=== PATIENT | female | born 1945 | race Native Hawaiian/Other Pacific Islander ===

== ENCOUNTER 2019-01-26 07:07 | Emergency (ER) | payer MEDICARE, OTHER ==
--- NOTE | 2019-01-26 07:13 | ED Physician Documentation ---
PD HPI DYSPNEA - Stated complaint Stated Complaint: SOA - Chief complaint Chief Complaint: Resp - History obtained from History obtained from: Patient - History of Present Illness Timing - onset: How many days ago (few days of cough and progressively worse wheezing.) Timing - onset during: Light activity Timing - duration: Days Timing - details: Gradual onset, Still present Inciting event(s): URI. No: Out of meds, Allergic rxn/anaphylaxis Improved by: Inhaler/neb (but not well improved with MDI at home.) Associated symptoms: Cough, Wheezing. No: Fever, Hemoptysis, Chest pain / discomfort, Palpitations, Bilateral edema Similar symptoms before: Diagnosis (COPD) Recently seen: Not recently seen Review of Systems Constitutional: reports: Myalgias. denies: Fever Nose: reports: Congestion Throat: denies: Sore throat Cardiac: denies: Chest pain / pressure Respiratory: reports: Dyspnea, Cough, Wheezing GI: reports: Diarrhea. denies: Abdominal Pain, Nausea, Vomiting Skin: denies: Rash, Lesions Neurologic: reports: Generalized weakness. denies: Focal weakness, Numbness, Near syncope PD PAST MEDICAL HISTORY - Past Medical History Cardiovascular: None Respiratory: COPD Neuro: None Endocrine/Autoimmune: None - Present Medications Home Medications: Ambulatory Orders Medication Instructions Recorded Confirmed Albuterol Sulf [Ventolin Hfa 1 - 2 puffs INH Q4HR PRN 01/26/19 01/26/19 Inhaler] Atorvastatin [Lipitor] 0 mg 01/26/19 01/26/19 Doxycycline Hyclate 100 mg PO BID #14 capsule 01/26/19 Ipratropium [Atrovent] 1 puffs INH TID #1 inhaler 01/26/19 Lisinopril/Hydrochlorothiazide 1 each PO 01/26/19 [Lisinopril-Hctz 10-12.5 mg Tab] Metoprolol Succinate 50 mg PO 01/26/19 Potassium Chloride [Micro-K] 10 meq PO 0800 01/26/19 01/26/19 dexAMETHasone [Decadron] 4 mg PO DAILY #7 tablet 01/26/19 - Allergies Allergies/Adverse Reactions: Allergies Allergy/AdvReac Type Severity Reaction Status Date / Time No Known Drug Allergies Allergy Verified 01/26/19 07:41 PD ED PE NORMAL - Vitals Vital signs reviewed: Yes - General General: Alert and oriented X 3, Well developed/nourished - HEENT HEENT: Moist mucous membranes, Pharynx benign - Neck Neck: Supple, no meningeal sign, No adenopathy - Cardiac Cardiac: RRR (tachycardic), No murmur - Respiratory Respiratory: No: Clear bilaterally (wheezing diffuse with decreased tidal volume. Able to complete sentences. Mild accessory muscle use. ) - Abdomen Abdomen: Soft, Non tender - Derm Derm: Normal color, Warm and dry - Extremities Extremities: No deformity, Normal ROM s pain, No edema, No calf tenderness / cord - Neuro Neuro: Alert and oriented X 3, No motor deficit, Normal speech Results - Vitals Vitals: Vital Signs - 24 hr 01/26/19 01/26/19 01/26/19 07:10 07:30 08:30 Temperature 37.3 C Heart Rate 113 H 101 H 130 H Respiratory 28 H 22 20 Rate Blood Pressure 162/74 H O2 Saturation 98 01/26/19 08:32 Temperature 37.3 C Heart Rate 129 H Respiratory 18 Rate Blood Pressure 132/76 H O2 Saturation 94 Oxygen O2 Source Room air - Rads (name of study) chest xray Radiology: Prelim report reviewed, EMP read contemporaneously (no infiltrate), See rad report PD MEDICAL DECISION MAKING - ED course Complexity details: re-evaluated patient (She is having improvement in her breathing and wheezing after a DuoNeb. She is given start her on steroids. She still has some wheezing but has no work of breathing. We will give her second nebulizer with albuterol. I think she will be able to be discharged after that point.), considered differential (seems like URI or bronchitis, and exac COPD. Given the COPD, she is more likely to do well with abx, as well as steroids and allergy meds. ), d/w patient Departure - Departure Disposition: 01 Home, Self Care Clinical Impression: Acute exacerbation of COPD with asthma Upper respiratory infection Qualifiers: URI type: unspecified URI Qualified Code(s): J06.9 - Acute upper respiratory infection, unspecified Condition: Stable Record reviewed to determine appropriate education?: Yes Instructions: ED Upper Resp Infec Abx Tx, ED COPD Flare Prescriptions: dexAMETHasone [Decadron] 4 mg PO DAILY #7 tablet Doxycycline Hyclate 100 mg PO BID #14 capsule Ipratropium [Atrovent] 1 puffs INH TID #1 inhaler Comments: Continue your albuterol inhaler 2 puffs 4 times a day regularly at home and use it extra times as needed for wheezing. Add to it Atrovent (ipratropium) inhaler 1 puff 3 times a day for the next week or 2. Add Decadron oral steroid daily for week. Take doxycycline antibiotic twice daily for a week as well for potential of bacterial infection. Recheck if not improving over the next few days. Return sooner if worsening. Discharge Date/Time: 01/26/19 09:01
[2019-01-26] MEDS ORDERED: DEXAMETHASONE 10 MG/ML VIAL PO STA (07:18)
[2019-01-26] MEDS ORDERED: IPRATROPIUM/ALBUTEROL 3 ML NEB INH STA (07:18)
[2019-01-26] MEDS ORDERED: CHERRY SYRUP 10 ML UDC PO ONE (07:18)
[2019-01-26] MEDS ORDERED: ALBUTEROL NEB 2.5 MG/3 ML INH STA (08:16)
[2019-01-26] MEDS ORDERED: diphenhydrAMINE 25 MG CAPSULE PO STA (08:16)
--- NOTE | 2019-01-26 08:28 | XRAY Report ---
Reason: dyspnea/ cough Procedure Date: 01/26/2019 Accession Number: [id number] / [id number] Procedure: XR - Chest 2 View X-Ray CPT Code: 77566 FULL RESULT: EXAM: CHEST RADIOGRAPHY EXAM DATE: 01/26/2019 07:29 AM. CLINICAL HISTORY: Dyspnea/ cough. COMPARISON: None. TECHNIQUE: 2 views. FINDINGS: Lungs/Pleura: Bilateral parahilar and right infrahilar peribronchial thickening. No vadim consolidation or vascular congestion. No pneumothorax or pleural effusion. Borderline hyperinflation. Mediastinum: Normal heart size and mildly tortuous aorta with calcified aortic knob. Other: No fracture evident. IMPRESSION: 1. Possible airways disease/bronchitis. No consolidative pneumonia. 2. Normal heart size without failure. Senescent aorta. RADIA
[2019-01-26 08:33] VITALS: BP 132/76
== END 2019-01-26 09:01 | disposition home or self-care (01) ==
LOC: ED 07:07
DX: J44.1 Chronic obstructive pulmonary disease with (acute) exacerbation (principal); J06.9 Acute upper respiratory infection, unspecified
CPT/HCPCS: 71046; 94640; 99283; 99284; A9270

== ENCOUNTER 2024-07-31 11:42 | Observation (INO) ==
--- NOTE | 2024-07-31 13:07 | XRAY Report ---
PROCEDURE: XR Chest 1V INDICATIONS: SOA/cough TECHNIQUE: One view of the chest was acquired. COMPARISON: January 26, 2019. FINDINGS: Surgical changes and devices: None. Lungs and pleura: Hyperinflated without pleural effusions or pneumothorax. No consolidation. Mediastinum: Mediastinal contours appear normal. Heart size is normal. Bones and chest wall: No suspicious bony lesions. Overlying soft tissues appear unremarkable. IMPRESSION: No acute cardiopulmonary process. Reviewed by: Lili Chirinos MD on 07/31/2024 12:06 PM [facility] Approved by: Lili Chirinos MD on 07/31/2024 12:06 PM [facility] Station ID: [id number]
[2024-07-31 13:35] LABS: BASOPHILS % (AUTO) 0.3 %; HCT - HEMATOCRIT 23.3 % (37.0-47.0); HGB - HEMOGLOBIN 7.6 g/dL (12.0-16.0); LYMPHOCYTES # (AUTO) 1.3 10^3/uL (1.5-3.5); LYMPHOCYTES % (AUTO) 13.3 %; MEAN CORPUSCULAR HEMOGLOBIN 33.2 pg (27.0-31.0); MEAN CORPUSCULAR HGB CONC 32.6 g/dL (32.0-36.0); MEAN CORPUSCULAR VOLUME 101.7 fL (81.0-99.0); MEAN PLATELET VOLUME 9.5 fL (7.9-10.8); MONOCYTES # (AUTO) 0.2 10^3/uL (0.0-1.0); MONOCYTES % (AUTO) 1.9 %; NEUTROPHILS # (AUTO) 8.1 10^3/uL (1.5-6.6); PLT - PLATELET COUNT 278 10^3/uL (130-450); RED BLOOD COUNT 2.29 10^6/uL (4.20-5.40); RED CELL DISTRIBUTION WIDTH 13.6 % (12.0-15.0); WHITE BLOOD COUNT 9.6 x10^3/uL (4.8-10.8)
[2024-07-31 13:37] LABS: INR 1.1 (0.8-1.2); PT - PROTHROMBIN TIME 12.3 secs (9.9-12.6)
[2024-07-31 13:41] LABS: CORONAVIRUS 229E-RESP PCR NOT DETECTED; CORONAVIRUS HKU1-RESP PCR NOT DETECTED; CORONAVIRUS NL63-RESP PCR NOT DETECTED; CORONAVIRUS OC43-RESP PCR NOT DETECTED; HUMAN METAPNEUMOVIRUS NOT DETECTED; INFLUENZA A- RESP PCR PANEL NOT DETECTED; INFLUENZA B - RESP PCR PANEL NOT DETECTED; PARAINFLUENZA VIRUS 1 NOT DETECTED; PARAINFLUENZA VIRUS 2 NOT DETECTED; RHINOVIRUS/ENTEROVIRUS NOT DETECTED; SARS-CoV-2 -RESP PCR PANEL NOT DETECTED
[2024-07-31 13:42] LABS: B. PARAPERTUSSIS- RESP PCR PAN NOT DETECTED; B. PERTUSSIS- RESP PCR PANEL NOT DETECTED; C. PNEUMONIAE- RESP PCR PANEL NOT DETECTED; M. PNEUMONIAE- RESP PCR PANEL NOT DETECTED; PARAINFLUENZA VIRUS 3 NOT DETECTED; PARAINFLUENZA VIRUS 4 NOT DETECTED; RSV- RESP PCR PANEL NOT DETECTED
[2024-07-31 13:48] LABS: ALBUMIN 3.9 g/dL (3.2-5.5); ALBUMIN/GLOBULIN RATIO 1.8 (1.0-2.2); BILIRUBIN,TOTAL 0.4 mg/dL (0.2-1.0); CALCIUM 8.8 mg/dL (8.5-10.3); CREATININE 0.6 mg/dL (0.6-1.3); TOTAL PROTEIN 6.1 g/dL (6.4-8.9)
[2024-07-31 13:53] LABS: TROPONIN I HIGH SENSITIVITY 4.8 ng/L (2.3-14.8)
--- NOTE | 2024-07-31 13:54 | ED Physician Documentation ---
PD HPI DYSPNEA Stated complaint Stated Complaint: SOA/GI Chief complaint Chief Complaint: Resp Additional information Additional information: 79-year-old female history of COPD, not on oxygen presents by EMS from home for shortness of breath and dark stools. Patient states that normally she is able to do all of her activities without shortness of breath. Yesterday she noticed that while taking the trash to the street she was slightly winded. Overnight she woke up to use the restroom and was unable to go more than a couple of steps without severe dyspnea. Today her symptoms persisted and she called 911 for evaluation. Patient states that several years ago in [place] she was diagnosed with ulcers, however she has not followed up with a physician since moving to [facility] over a year ago. Denies use of NSAIDs or other blood thinners. Meds/Allgy Home Medications Ambulatory Orders Medication Instructions Recorded Confirmed albuterol sulfate 90 mcg/actuation 1 - 2 puff inhalation Q4HR PRN 01/26/19 07/31/24 aerosol inhaler (Ventolin HFA) Shortness Of Air/Wheezing atorvastatin 10 mg tablet 10 mg PO DAILY 01/26/19 07/31/24 ipratropium bromide 17 1 puff inhalation TID ##1 01/26/19 07/31/24 mcg/actuation HFA aerosol inhaler (Atrovent HFA) lisinopril 10 1 ea PO DAILY 01/26/19 07/31/24 mg-hydrochlorothiazide 12.5 mg tablet metoprolol succinate 50 mg 50 mg PO DAILY 01/26/19 07/31/24 tablet,extended release 24 hr potassium chloride 10 mEq 10 meq PO 0800 01/26/19 07/31/24 capsule,extended release Allergies Allergies Allergy/AdvReac Type Severity Reaction Status Date / Time No Known Drug Allergies Allergy Verified 07/31/24 11:56 [facility] Medical History Medical History (Updated 07/31/24 @ 14:04 by Nara Woodward MD) Acute blood loss anemia Hx of peptic ulcer HLD (hyperlipidemia) HTN (hypertension) COPD (chronic obstructive pulmonary disease) Surgical History Surgical History (Updated 07/31/24 @ 12:01 by Shane Lai RN) Hx of hysterectomy Social History Social History (Updated 07/31/24 @ 12:01 by Shane Lai RN) Smoking Status: Former smoker Relationship: Level: Independent Do you feel safe in your home environment?: Yes Suffered physical, verbal, emotional, or financial abuse?: No History of Abuse: No ETOH Use: None Substance Use: cannabis (any form) POLST Patient has POLST: No Exam Constitutional normal general appearance frail Chest inspection of chest normal and palpation of chest normal Respiratory breath sounds equal bilaterally, normal respiratory effort and no wheezes Cardiovascular tachycardia, regular rhythm Gastrointestinal abdomen normal to inspection and abdomen soft to palpation Rectal exam: learning engineer present, dark black stool in rectal vault Neurology chief deputy II-XII intact, no movement abnormality noted, no sensory deficits noted and speech normal Psychiatry mental status grossly normal, oriented x3, thought process normal and psychomotor activity normal Skin skin color normal and no rash Results Vitals Vitals: Vital Signs - 24 hr 07/31/24 11:57 07/31/24 12:20 07/31/24 12:47 Temperature 36.5 C Temperature Source Oral Pulse Rate 110 H 120 H Respiratory Rate 20 26 H Blood Pressure 128/59 L 107/45 L O2 Saturation 84 L 98 Oxygen Delivery Method Nasal Cannula O2 Source Room air Nasal cannula Oxygen Flow Rate 2 If not protocol: Oxygen Flow, liters/minute 2 Pain Intensity 0 0 07/31/24 12:52 07/31/24 13:52 Temperature Temperature Source Pulse Rate 111 H Respiratory Rate 20 Blood Pressure 116/44 L O2 Saturation 95 Oxygen Delivery Method Nasal Cannula O2 Source Nasal cannula Oxygen Flow Rate If not protocol: Oxygen Flow, liters/minute 2 2 Pain Intensity 0 Oxygen O2 Source Nasal cannula Oxygen Flow Rate 2 Labs Labs: Laboratory Tests 07/31/24 07/31/24 12:40 13:21 WBC 9.6 RBC 2.29 L Hgb 7.6 L Hct 23.3 L MCV 101.7 H MCH 33.2 H MCHC 32.6 RDW 13.6 Plt Count 278 MPV 9.5 Neut # (Auto) 8.1 H Lymph # (Auto) 1.3 L [place] # (Auto) 0.2 Eos # (Auto) 0.0 Baso # (Auto) 0.0 Absolute Nucleated RBC 0.00 Nucleated RBC % 0.0 PT 12.3 INR 1.1 Sodium 137 Potassium 4.0 Chloride 106 Carbon Dioxide 24 Anion Gap 7.0 BUN 47 H Creatinine 0.6 Estimated GFR (MDRD) 97 Glucose 147 H Calcium 8.8 Total Bilirubin 0.4 AST 12 ALT 10 Alkaline Phosphatase 36 L Troponin I High Sens 4.8 B-Natriuretic Peptide 21 Total Protein 6.1 L Albumin 3.9 Globulin 2.2 Albumin/Globulin Ratio 1.8 Nasal Adenovirus (PCR) NOT DETECTED Nasal B. parapertussis DNA (PCR) NOT DETECTED Nasal Coronavir 229E PCR NOT DETECTED Nasal Coronavir HKU1 PCR NOT DETECTED Nasal Coronavir NL63 PCR NOT DETECTED Nasal Coronavir OC43 PCR NOT DETECTED Nasal Enterovir/Rhinovir PCR NOT DETECTED Nasal Influenza B PCR NOT DETECTED Nasal Influenza A PCR NOT DETECTED Nasal Parainfluen 1 PCR NOT DETECTED Nasal Parainfluen 2 PCR NOT DETECTED Nasal Parainfluen 3 PCR NOT DETECTED Nasal Parainfluen 4 PCR NOT DETECTED Nasal RSV (PCR) NOT DETECTED Nasal B.pertussis DNA PCR NOT DETECTED Nasal C.pneumoniae (PCR) NOT DETECTED Nathan Human Metapneumo PCR NOT DETECTED Nasal M.pneumoniae (PCR) NOT DETECTED Nasal SARS-CoV-2 (PCR) NOT DETECTED PD Medical Decision Making ED course ED course: Shortness of breath and dark stools for 1 day. Patient does report history of ulcers, however has had no recent follow-up for this issue. Lungs are clear to auscultation bilaterally without wheezing. Patient's heart rate is well- controlled when at rest, however even minor exertion causes patient's heart rate to increase 120 bpm. With the otherwise rapid progression of symptoms and black stools suspect GI bleed. Laboratory work shows hemoglobin 7.6, troponin undetectable. Chest x-ray negative for acute findings. No bloody bowel movements so far while in the emergency department. Type and screen sent and is pending at this time. Discussed case with Dr. Juarez of general surgery, who agrees to see patient as consult. Patient admitted to medicine service for further treatment. Consults Consults: Consulted (name) (Dr. Juarez) and Other (Will see patient as consult) Critical Care Time(min): 33 Comments: Upper GI bleed requiring admission Time Includes: Direct patient care, Review records, Reassess patient, Document care, Coordinate care, Medical consult and See progress note Data interpretation: Labs, CXR, Cardiac output and See progress note Discharge Plan Discharge Patient Disposition: 66 [facility] DC/Xfer Condition: Fair Clinical Impression: Acute upper GI bleed, Anemia, Acute dyspnea Prescriptions: No Action potassium chloride 10 MEQ capsule, extended release 10 meq PO 0800 atorvastatin 10 MG tablet 10 mg PO DAILY Patient Comments: ran out. doesn't have a doctor now. metoprolol succinate 50 MG tablet extended release 24 hr 50 mg PO DAILY lisinopril-hydrochlorothiazide 1 EACH tablet 1 ea PO DAILY Patient Comments: ran out, no MD do refill albuterol sulfate [Ventolin HFA] 200 PUFFS/18 GM HFA aerosol inhaler 1 - 2 puff inhalation Q4HR PRN (Reason: Shortness Of Air/Wheezing) Atrovent HFA 200 PUFFS HFA aerosol inhaler 1 puff inhalation TID Qty: 1 0RF Print Language: Kazakh
[2024-07-31] MEDS: PANTOPRAZOLE 40 MG VIAL IV STA (14:46)
[2024-07-31] MEDS ORDERED: oxyCODONE 5 MG TABLET PO PRN (16:09)
[2024-07-31] MEDS ORDERED: ACETAMINOPHEN 325 MG TABLET PO PRN (16:09)
[2024-07-31] MEDS ORDERED: ONDANSETRON ODT 4 MG TABLET TL PRN (16:09)
[2024-07-31] MEDS ORDERED: ONDANSETRON 4 MG/2 ML VIAL IVP PRN (16:09)
[2024-07-31] MEDS ORDERED: SODIUM CHLORIDE FLUSH 0.9% 10 ML SYRINGE IVP PRN (16:09)
[2024-07-31 16:24] LABS: BASOPHILS # (AUTO) 0.1 10^3/uL (0.0-0.1); BASOPHILS % (AUTO) 0.5 %; HCT - HEMATOCRIT 23.8 % (37.0-47.0); HGB - HEMOGLOBIN 7.9 g/dL (12.0-16.0); LYMPHOCYTES # (AUTO) 1.1 10^3/uL (1.5-3.5); LYMPHOCYTES % (AUTO) 9.3 %; MEAN CORPUSCULAR HEMOGLOBIN 33.8 pg (27.0-31.0); MEAN CORPUSCULAR HGB CONC 33.2 g/dL (32.0-36.0); MEAN CORPUSCULAR VOLUME 101.7 fL (81.0-99.0); MEAN PLATELET VOLUME 9.4 fL (7.9-10.8); MONOCYTES # (AUTO) 0.1 10^3/uL (0.0-1.0); MONOCYTES % (AUTO) 0.6 %; NEUTROPHILS # (AUTO) 10.6 10^3/uL (1.5-6.6); NEUTROPHILS % (AUTO) 88.8 %; NRBC ABSOLUTE COUNT (AUTO) 0.02 x10^3/uL; NUCLEATED RED BLOOD CELLS AUTO 0.2 /100WBC; PLT - PLATELET COUNT 294 10^3/uL (130-450); RED BLOOD COUNT 2.34 10^6/uL (4.20-5.40); RED CELL DISTRIBUTION WIDTH 13.7 % (12.0-15.0); WHITE BLOOD COUNT 11.9 x10^3/uL (4.8-10.8)
[2024-07-31 16:31] LABS: INR 1.1 (0.8-1.2); PT - PROTHROMBIN TIME 12.2 secs (9.9-12.6)
[2024-07-31] MEDS: SODIUM CHLORIDE 0.9% 1,000 ML IV SCH (16:33)
[2024-07-31] MEDS: PANTOPRAZOLE 40 MG TABLET PO SCH (16:33)
[2024-07-31] MEDS: SODIUM CHLORIDE FLUSH 0.9% 10 ML SYRINGE IVP SCH (16:33)
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
[2024-07-31] MEDS: methylPREDNISolone SUCCINATE 40 MG/ML VIAL IVP SCH (18:38)
[2024-07-31] MEDS: AZITHROMYCIN 250 MG TABLET PO SCH (18:39)
--- NOTE | 2024-07-31 18:52 | ADVANCE CARE PLANNING NOTE ---
Advance Care Planning Planning Encounter Date: 07/31/24 Time: 16:00 Purpose: Establish CODE STATUS and assess social determinants of health Parties in Attendance: Patient and hospitalist Decisional Capacity of the Patient: She is alert and oriented to person, place, time but poor insight with regards to her situation, and slowly coming to understand her risk of living alone in view of her recent weight loss Diagnosis for Encounter (1) At risk for impaired home maintenance management: Summary: Patient lives alone. Losing weight. Has not establish yourself with a primary care provider. Medical problems appear to be getting uncontrolled because of it. Encounter Subjective/Patient's Story: She was born in [place] and lived there until the age of 30. Her mother had her father (who she has never really maintain contact with since that time) and mom a second . With the second , her mom had 4 daughters. She had 1 brother from mom's first marriage. Mom was living on the [place] so she came to stay with her mom when she was 30. While on the [place] she worked for the [employer]. She worked for the [employer] for over 20 years. When she was to her , before he , he was a retired and received approximately $5000 from [place] pension. That has gone away since he . Currently the patient gets Social Security at approximately $1500 a month, and less than $1500 a month from the [employer] pension. The patient has been 3 times and her last marriage was a very happy 1, and, unfortunately, he in July 2022. They use to spend their time between [facility] and the [place]. Most of her primary care provider care was done in [place]. Her most recent primary care provider in [facility] was Dr. Belle Quevedo who took care of her for the peptic ulcer disease, GI bleed, endoscopies. And the patient was also hospitalized because she was carrying hot chicken gravy from a stove to a bowl and had second-degree ren on her face and her arms. That hospitalization was with [facility] in [facility]. For while she was taken care of by Dr. Michele Miramontes here on the [place], but that primary care provider has not been in an active practice since approximately 2006. She moved back to the [place] on a permanent basis in 2022. She cannot explain why she never establish herself with a primary care provider. She has run out of quite of her medications but she cannot remember what the pills were for. The pill she has right now she is spacing out so that she does not run out of them completely. She thinks that she used to take a cholesterol pill, and a blood pressure pill. When I mentioned that she has inhalers prescribed by the ER in 2019 she says she does not remember that. She acknowledges memory loss. Depression. Poor appetite and weight loss. Her hands hurt her but that is about the major source of her pain. She does not have abdominal pain. She does have low back pain and that is why she was taking Motrin. She still drives a car but only drives it in [place] to go from the house to the grocery store. 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 But she is vague if she is taking regular baths. She does do laundry. She does have 4 sisters here on the [place]. They are all significantly younger than her and are the product of her mom's second marriage. While the patient is in her 70s, her sisters are in their 50s. She regards her sister Ross (who she thinks is 54) is her DURABLE POWER OF SLAT GRADER. Ross lives nearby and comes over on a regular basis. They all do. They are getting ready to get together to build a ramp for her for her house. She does not remember having any falls. Her bills are paid on time because they are automatic. A couple are paid with checks but she remembers to do so. She does not recall having any let ters from [employer] or the [employer] that stated they were going to turn off her utilities for lack of payment. She does not remember any credit cards being paid late. The patient has a daughter in [place]. And they are in contact and it is a loving relationship, but she feels her daughter is "too far away". Daughter would really like for her to go live there but she does not want to live in [facility]. She feels like she could still stay here on the [place], maintain her independence in her own home, and rely on the help of her sisters. She says that her sisters are very loving and they are very close and she feels like she can ask for help from them. When I ask about her other child, her son, the patient again burst into tears. She cried at the mention of her and how much she misses them. She states that she really cannot talk about the loss of her son. He had a problem with substance abuse/drug abuse and of a drug overdose. When I ask about resuscitation, the patient wishes to be a DO NOT RESUSCITATE. If she has no pulse or pressure she does not want to be brought back. She firmly denies current alcohol abuse issues. She is macrocytic. She does not have a history of cirrhosis. She only drinks 2 glasses of wine with her sisters. And that maybe once a month. Objective/Medical Story: She is 79-year-old female has been on [facility] since the age of 30. 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 He in 2021. She lives alone. Lives on a two-story [facility] home and family is concerned about her ability to live by herself and is getting ready to build a ramp for her to get in and out of her house. She still drives but only in [place]. She has 4 sisters that live on the [place]. And a daughter that lives in [place]. She has a history of peptic ulcer disease from when she was living in [place]. At that time her primary care provider was Belle Quevedo. She remembers having to be hospitalized for melena. She was diagnosed as having ulcers. She has an EGD several times because they wanted know where the ulcers were, and if they were healed and if she had cancer. To her knowledge her ulcer is healed. She does have poor memory and does not remember if they told her not to take any more nonsteroidals. But she says that her back was hurting her in the last few weeks and she was taking Motrin daily for back pain. She came to the emergency room because she was getting weaker, tired, and short of breath. She was more exhausted than usual. She states that she has lost a lot of weight. When her in July 2022. She kind of lost her appetite. Did not eat. Came to the [place] in 20[place]. When she was here the her sisters castigated her. She was down to 84 pounds. She has been trying to eat more but she is only up to 90 pounds. She is a remote smoker. She started smoking in 1961 and quit smoking in 2008. She smoked a pack per day. She coughs on a daily basis, has phlegm on a daily basis. She wheezes occasionally. But she does not take any medication for it. She thought that her lungs were bothering her. She tried to take the garbage out yesterday and barely mated back into the house. Last night she tried to get up to go to the bathroom and her dyspnea was so severe that she just stayed in bed. She started having dark stools 2 days ago. Today they were really bad. When her dyspnea was so severe she called EMS she was brought to the emergency room. She told the emergency room doctor she was not taking nonsteroidals but she did not realize that Motrin was a nonsteroidal. In the emergency room temperature was 36.5. Heart rate was 110. Blood pressure 128/59. She was 84% on room air. Every time she tried to get up to go to the bathroom her pulse would go to the 120s. She also dropped her pressure was standing 207/45. She was requiring 2 L nasal cannula to maintain O2 sat of 98%. Her exam had normal chest exam. Equal breath sounds. And abdomen that was soft. Black stool in the rectal vault. It is unknown what her baseline blood work is since she has not seen a doctor on [facility] since she moved back. White cell count is 9.6, hemoglobin 7.6. MCV is 101.7. The emergency room provider did talk to general surgery. General surgery feels that the patient would be an appropriate candidate for her to scope if I needed to consult. After discussion with the emergency room provider I think is reasonable for me to place this patient in observation. I will continue to monitor her hemogram and see if she needs blood transfusions. If she does need transfusion she will need a scope. I will also be treating her new hypoxemia diagnosis and probable diagnosis of COPD with exacerbation that is mild. Goals of Care: She wants to remain as independent as possible. She does not want to live in a senior living or assisted living facility and also states she cannot afford it. She wants to remain in her own home. At this time she is willing to consider living with one of her sisters but does not want to live with her daughter because she lives too far away. She does not have that kind of money. She would like to be DO NOT RESUSCITATE. Plan: 1. POLST form will be filled out tomorrow morning. Patient wishes to be DO NOT RESUSCITATE. 2. She is to sit down with her 4 sisters and plan a practical existence if she wishes to maintain independence in her own home. For instance the ramp will be built. I also recommend that she not drive anymore. She needs to let them know that she wishes to be a DO NOT RESUSCITATE. And I have asked her to sit down and formulate some type of schedule with there is regular check-in for her. And establish a care plan such as establishing herself with her primary care provider and that her sisters could drive her to those visits. For instance she could go to the [facility] since it is nearby. 3. I would like to have a conversation with her DPOA, Ross. If she wishes to make this formal paperwork should be filled out. And I would also suggest, as a point of family unity, but the patient let her daughter know that her DPOA will be her Sister Ross. 4. Social work consult. I would like to see if this patient qualifies for Medicaid. If she does, she may be able to qualify for frederic with in-home support hours. [place] of a waiting list because there is a scarcity of caregivers.. But it will not hurt to try Code Status: Do Not Attempt Resuscitation Time spent on advance care plannin minutes
[2024-07-31] MEDS: diphenhydrAMINE 25 MG CAPSULE PO ONE (19:11)
[2024-07-31] MEDS: IPRATROPIUM/ALBUTEROL 3 ML NEB INH SCH (20:08)
[2024-07-31 22:14] LABS: BASOPHILS % (AUTO) 0.2 %; HCT - HEMATOCRIT 29.5 % (37.0-47.0); HGB - HEMOGLOBIN 9.6 g/dL (12.0-16.0); LYMPHOCYTES # (AUTO) 1.4 10^3/uL (1.5-3.5); LYMPHOCYTES % (AUTO) 14.8 %; MEAN CORPUSCULAR HEMOGLOBIN 30.9 pg (27.0-31.0); MEAN CORPUSCULAR HGB CONC 32.5 g/dL (32.0-36.0); MEAN CORPUSCULAR VOLUME 94.9 fL (81.0-99.0); MEAN PLATELET VOLUME 9.3 fL (7.9-10.8); MONOCYTES # (AUTO) 0.1 10^3/uL (0.0-1.0); MONOCYTES % (AUTO) 1.1 %; NEUTROPHILS # (AUTO) 8.1 10^3/uL (1.5-6.6); NEUTROPHILS % (AUTO) 83.1 %; NRBC ABSOLUTE COUNT (AUTO) 0.02 x10^3/uL; NUCLEATED RED BLOOD CELLS AUTO 0.2 /100WBC; PLT - PLATELET COUNT 242 10^3/uL (130-450); RED BLOOD COUNT 3.11 10^6/uL (4.20-5.40); RED CELL DISTRIBUTION WIDTH 18.2 % (12.0-15.0); WHITE BLOOD COUNT 9.7 x10^3/uL (4.8-10.8)
[2024-07-31 22:15] LABS: BILIRUBIN,URINE NEGATIVE (NEGATIVE); GLUCOSE, URINE (UA) NEGATIVE (NEGATIVE); KETONES,URINE (UA) 15 mg/dL (NEGATIVE); LEUKOCYTE ESTERASE, URINE NEGATIVE (NEGATIVE); NITRITE,URINE NEGATIVE (NEGATIVE); OCCULT BLOOD,URINE TRACE-INTA (NEGATIVE); PH,URINE 5.5 PH (5.0-7.5); PROTEIN,URINE NEGATIVE (NEGATIVE); UROBILINOGEN,URINE 0.2 (NORMAL) E.U./dL (NORMAL)
[2024-07-31 22:18] LABS: CLARITY,URINE CLEAR (CLEAR)
[2024-07-31 22:32] LABS: BACTERIA,URINE Rare /HPF (None Seen); RBC,URINE 0-5 /HPF (0-5); SQUAMOUS EPITHELIAL CELL,UR FEW Squamous (<= Few); WBC,URINE 0-3 /HPF (0-5)
[2024-08-01 04:50] LABS: BASOPHILS % (AUTO) 0.1 %; EOSINOPHILS % (AUTO) 0.1 %; HCT - HEMATOCRIT 24.9 % (37.0-47.0); HGB - HEMOGLOBIN 8.5 g/dL (12.0-16.0); LYMPHOCYTES # (AUTO) 1.2 10^3/uL (1.5-3.5); MEAN CORPUSCULAR HEMOGLOBIN 31.8 pg (27.0-31.0); MEAN CORPUSCULAR HGB CONC 34.1 g/dL (32.0-36.0); MEAN CORPUSCULAR VOLUME 93.3 fL (81.0-99.0); MEAN PLATELET VOLUME 9.1 fL (7.9-10.8); MONOCYTES # (AUTO) 0.5 10^3/uL (0.0-1.0); MONOCYTES % (AUTO) 5.6 %; NEUTROPHILS # (AUTO) 6.5 10^3/uL (1.5-6.6); NEUTROPHILS % (AUTO) 79.1 %; NRBC ABSOLUTE COUNT (AUTO) 0.04 x10^3/uL; NUCLEATED RED BLOOD CELLS AUTO 0.5 /100WBC; PLT - PLATELET COUNT 237 10^3/uL (130-450); RED BLOOD COUNT 2.67 10^6/uL (4.20-5.40); RED CELL DISTRIBUTION WIDTH 20.6 % (12.0-15.0); WHITE BLOOD COUNT 8.2 x10^3/uL (4.8-10.8)
[2024-08-01 04:54] LABS: SLIDE REVIEW? Indicated
[2024-08-01 05:05] LABS: CALCIUM 8.7 mg/dL (8.5-10.3); CREATININE 0.6 mg/dL (0.6-1.3); POTASSIUM 4.5 mmol/L (3.5-4.5)
[2024-08-01 05:13] LABS: PLATELET ESTIMATE, MANUAL NORMAL (130-450,000) (NORMAL); PLATELET MORPHOLOGY NORMAL APPEARANCE (NORMAL); WBC MORPHOLOGY (MULTIPLE) NORMAL APPEARANCE (NORMAL)
[2024-08-01 07:46] VITALS: TEMP 99
[2024-08-01] MEDS: METOPROLOL 5 MG/5 ML VIAL IVP PRN (07:50)
[2024-08-01 08:06] VITALS: O2SAT 98
[2024-08-01] MEDS ORDERED: iohexoL-300 100 ML VIAL ONE (08:32)
[2024-08-01] MEDS: ATORVASTATIN 10 MG TABLET PO SCH (08:40)
[2024-08-01] MEDS: POTASSIUM CHLORIDE 10 MEQ CAPSULE PO SCH (08:40)
[2024-08-01] MEDS: METOPROLOL SUCCINATE 50 MG TABLET PO SCH (08:40)
[2024-08-01 08:52] LABS: THYROID STIMULATING HORMONE 0.74 uIU/mL (0.34-5.60)
--- NOTE | 2024-08-01 10:08 | CONSULTATION NOTE ---
History of Present Illness History of Present Illness HPI Comment/Other: 79yoF admitted to Hospitalist service yesterday afternoon for presumed UGIB. She has a known history of UGIB and gastric ulcers (thought to be in the last 5- 10yrs timeframe), and was recently using frequent ibuprofen for back pain. She experienced melena and lightheadedness and fatigue over the last 2 days. She was admitted with hgb 7.5, was transfused 1U, has had no further BM since admission, is not hypotensive or orthostatic. She denies abdominal pain or emesis, has occasional mild nausea. Endorses taking an OTC antacic on a PRN basis for heartburn; no regular H2b or PPI. She does not take anticoagulants. Former smoker, quit 2009. Patient reports history of several colonoscopies, include one where something was tattooed with follow up scopes, thinks it has been "a long time" since her last scope, and no records available today. She lives alone, has possible early dementia, and her daughter who is a physician and lives out of state is planning to bring the patient to live with her starting Aug 18. [facility] Medical History Medical History (Updated 07/31/24 @ 18:31 by Nely Camacho MD) Acute blood loss anemia Hx of peptic ulcer HLD (hyperlipidemia) HTN (hypertension) COPD (chronic obstructive pulmonary disease) Surgical History Surgical History (Updated 07/31/24 @ 12:01 by Shane Lai RN) Hx of hysterectomy Social History Social History (Updated 07/31/24 @ 12:01 by Shane Lai RN) Smoking Status: Former smoker If you are a former smoker, when did you quit? (Date/Year): 2009 Number of Years Smoked: 45 Second hand tobacco smoke exposure: No Do you dip or chew tobacco?: No Do you vape?: No Patient requests smoking cessation consult: No Initiate information on smoking cessation: No Relationship: Sibling Level: Assisted Do you feel safe in your home environment?: Yes Suffered physical, verbal, emotional, or financial abuse?: No History of Abuse: No ETOH Use: None Substance Use: cannabis (any form) POLST Patient has POLST: No POLST Status: DNR Meds/Allgy Home Medications Ambulatory Orders Medication Instructions Recorded Confirmed albuterol sulfate 90 mcg/actuation 1 - 2 puff inhalation Q4HR PRN 01/26/19 07/31/24 aerosol inhaler (Ventolin HFA) Shortness Of Air/Wheezing atorvastatin 10 mg tablet 10 mg PO DAILY 01/26/19 07/31/24 ipratropium bromide 17 1 puff inhalation TID ##1 01/26/19 07/31/24 mcg/actuation HFA aerosol inhaler (Atrovent HFA) lisinopril 10 1 ea PO DAILY 01/26/19 07/31/24 mg-hydrochlorothiazide 12.5 mg tablet metoprolol succinate 50 mg 50 mg PO DAILY 01/26/19 07/31/24 tablet,extended release 24 hr potassium chloride 10 mEq 10 meq PO 0800 01/26/19 07/31/24 capsule,extended release Allergies Allergies Allergy/AdvReac Type Severity Reaction Status Date / Time No Known Drug Allergies Allergy Verified 07/31/24 11:56 Results Lab Results 08/01/24 04:42 08/01/24 04:42 Other Lab Results: Lab Results x24hrs 08/01/24 08/01/24 08/01/24 Range/Units 04:42 04:42 04:42 WBC 8.2 (4.8-10.8) x10^3/uL RBC 2.67 L (4.20-5.40) 10^6/uL Hgb 8.5 L (12.0-16.0) g/dL Hct 24.9 L (37.0-47.0) % MCV 93.3 (81.0-99.0) fL MCH 31.8 H (27.0-31.0) pg MCHC 34.1 (32.0-36.0) g/dL RDW 20.6 H (12.0-15.0) % Plt Count 237 (130-450) 10^3/uL MPV 9.1 (7.9-10.8) fL Neut # (Auto) 6.5 (1.5-6.6) 10^3/uL Lymph # (Auto) 1.2 L (1.5-3.5) 10^3/uL [place] # (Auto) 0.5 (0.0-1.0) 10^3/uL Eos # (Auto) 0.0 (0.0-0.7) 10^3/uL Baso # (Auto) 0.0 (0.0-0.1) 10^3/uL Absolute Nucleated RBC 0.04 x10^3/uL Nucleated RBC % 0.5 /100WBC Manual Slide Review Indicated WBC Morphology NORMAL APPEARANCE (NORMAL) Platelet Estimate NORMAL (130-450,000) (NORMAL) Platelet Morphology NORMAL APPEARANCE (NORMAL) RBC Morph Micro Appear 1+ OVALOCYTES 1+ POLYCHROMASIA 2+ ANISOCYTOSIS (NORMAL) PT (9.9-12.6) secs INR (0.8-1.2) Sodium 139 (135-145) mmol/L Potassium 4.5 (3.5-4.5) mmol/L Chloride 110 (101-111) mmol/L Carbon Dioxide 22 (21-32) mmol/L Anion Gap 7.0 (6-13) BUN 36 H (6-20) mg/dL Creatinine 0.6 (0.6-1.3) mg/dL Estimated GFR (MDRD) 97 (>89) Glucose 162 H (74-104) mg/dL Calcium 8.7 (8.5-10.3) mg/dL Total Bilirubin (0.2-1.0) mg/dL AST (10-42) IU/L ALT (10-60) IU/L Alkaline Phosphatase (42-121) IU/L Troponin I High Sens (2.3-14.8) ng/L B-Natriuretic Peptide (5-100) pg/mL Total Protein (6.4-8.9) g/dL Albumin (3.2-5.5) g/dL Globulin (2.1-4.2) g/dL Albumin/Globulin Ratio (1.0-2.2) Vitamin B12 486 (180-914) pg/mL TSH 0.74 (0.34-5.60) uIU/mL Urine Color Urine Clarity (CLEAR) Urine pH (5.0-7.5) PH Ur Specific [place] (1.002-1.030) Urine Protein (NEGATIVE) mg/dL Urine Glucose (UA) (NEGATIVE) mg/dL Urine Ketones (NEGATIVE) mg/dL Urine Occult Blood (NEGATIVE) Urine Nitrite (NEGATIVE) Urine Bilirubin (NEGATIVE) Urine Urobilinogen (NORMAL) E.U./dL Ur Leukocyte Esterase (NEGATIVE) Urine RBC (0-5) /HPF Urine WBC (0-5) /HPF Ur Squamous Epith Cells (<= Few) Urine Bacteria (None Seen) /HPF Urine Culture Comments Nasal Adenovirus (PCR) Nasal B. parapertussis DNA (PCR) Nasal Coronavir 229E PCR Nasal Coronavir HKU1 PCR Nasal Coronavir NL63 PCR Nasal Coronavir OC43 PCR Nasal Enterovir/Rhinovir PCR Nasal Influenza B PCR Nasal Influenza A PCR Nasal Parainfluen 1 PCR Nasal Parainfluen 2 PCR Nasal Parainfluen 3 PCR Nasal Parainfluen 4 PCR Nasal RSV (PCR) Nasal B.pertussis DNA PCR Nasal C.pneumoniae (PCR) Nathan Human Metapneumo PCR Nasal M.pneumoniae (PCR) Nasal SARS-CoV-2 (PCR) Blood Type Blood Type Recheck Antibody Screen Crossmatch IS Only 07/31/24 07/31/24 07/31/24 Range/Units 22:09 21:50 16:18 WBC 9.7 11.9 H (4.8-10.8) x10^3/uL RBC 3.11 L 2.34 L (4.20-5.40) 10^6/uL Hgb 9.6 L 7.9 L (12.0-16.0) g/dL Hct 29.5 L 23.8 L (37.0-47.0) % MCV 94.9 101.7 H (81.0-99.0) fL MCH 30.9 33.8 H (27.0-31.0) pg MCHC 32.5 33.2 (32.0-36.0) g/dL RDW 18.2 H 13.7 (12.0-15.0) % Plt Count 242 294 (130-450) 10^3/uL MPV 9.3 9.4 (7.9-10.8) fL Neut # (Auto) 8.1 H 10.6 H (1.5-6.6) 10^3/uL Lymph # (Auto) 1.4 L 1.1 L (1.5-3.5) 10^3/uL [place] # (Auto) 0.1 0.1 (0.0-1.0) 10^3/uL Eos # (Auto) 0.0 0.0 (0.0-0.7) 10^3/uL Baso # (Auto) 0.0 0.1 (0.0-0.1) 10^3/uL Absolute Nucleated RBC 0.02 0.02 x10^3/uL Nucleated RBC % 0.2 0.2 /100WBC Manual Slide Review WBC Morphology (NORMAL) Platelet Estimate (NORMAL) Platelet Morphology (NORMAL) RBC Morph Micro Appear (NORMAL) PT 12.2 (9.9-12.6) secs INR 1.1 (0.8-1.2) Sodium (135-145) mmol/L Potassium (3.5-4.5) mmol/L Chloride (101-111) mmol/L Carbon Dioxide (21-32) mmol/L Anion Gap (6-13) BUN (6-20) mg/dL Creatinine (0.6-1.3) mg/dL Estimated GFR (MDRD) (>89) Glucose (74-104) mg/dL Calcium (8.5-10.3) mg/dL Total Bilirubin (0.2-1.0) mg/dL AST (10-42) IU/L ALT (10-60) IU/L Alkaline Phosphatase (42-121) IU/L Troponin I High Sens (2.3-14.8) ng/L B-Natriuretic Peptide (5-100) pg/mL Total Protein (6.4-8.9) g/dL Albumin (3.2-5.5) g/dL Globulin (2.1-4.2) g/dL Albumin/Globulin Ratio (1.0-2.2) Vitamin B12 (180-914) pg/mL TSH (0.34-5.60) uIU/mL Urine Color YELLOW Urine Clarity CLEAR (CLEAR) Urine pH 5.5 (5.0-7.5) PH Ur Specific [place] 1.025 (1.002-1.030) Urine Protein NEGATIVE (NEGATIVE) mg/dL Urine Glucose (UA) NEGATIVE (NEGATIVE) mg/dL Urine Ketones 15 H (NEGATIVE) mg/dL Urine Occult Blood TRACE-INTA (NEGATIVE) Urine Nitrite NEGATIVE (NEGATIVE) Urine Bilirubin NEGATIVE (NEGATIVE) Urine Urobilinogen 0.2 (NORMAL) (NORMAL) E.U./dL Ur Leukocyte Esterase NEGATIVE (NEGATIVE) Urine RBC 0-5 (0-5) /HPF Urine WBC 0-3 (0-5) /HPF Ur Squamous Epith Cells FEW Squamous (<= Few) Urine Bacteria Rare (None Seen) /HPF Urine Culture Comments NOT INDICATED Nasal Adenovirus (PCR) Nasal B. parapertussis DNA (PCR) Nasal Coronavir 229E PCR Nasal Coronavir HKU1 PCR Nasal Coronavir NL63 PCR Nasal Coronavir OC43 PCR Nasal Enterovir/Rhinovir PCR Nasal Influenza B PCR Nasal Influenza A PCR Nasal Parainfluen 1 PCR Nasal Parainfluen 2 PCR Nasal Parainfluen 3 PCR Nasal Parainfluen 4 PCR Nasal RSV (PCR) Nasal B.pertussis DNA PCR Nasal C.pneumoniae (PCR) Nathan Human Metapneumo PCR Nasal M.pneumoniae (PCR) Nasal SARS-CoV-2 (PCR) Blood Type Blood Type Recheck Antibody Screen Crossmatch IS Only 07/31/24 07/31/24 07/31/24 Range/Units 13:36 13:21 12:40 WBC 9.6 (4.8-10.8) x10^3/uL RBC 2.29 L (4.20-5.40) 10^6/uL Hgb 7.6 L (12.0-16.0) g/dL Hct 23.3 L (37.0-47.0) % MCV 101.7 H (81.0-99.0) fL MCH 33.2 H (27.0-31.0) pg MCHC 32.6 (32.0-36.0) g/dL RDW 13.6 (12.0-15.0) % Plt Count 278 (130-450) 10^3/uL MPV 9.5 (7.9-10.8) fL Neut # (Auto) 8.1 H (1.5-6.6) 10^3/uL Lymph # (Auto) 1.3 L (1.5-3.5) 10^3/uL [place] # (Auto) 0.2 (0.0-1.0) 10^3/uL Eos # (Auto) 0.0 (0.0-0.7) 10^3/uL Baso # (Auto) 0.0 (0.0-0.1) 10^3/uL Absolute Nucleated RBC 0.00 x10^3/uL Nucleated RBC % 0.0 /100WBC Manual Slide Review WBC Morphology (NORMAL) Platelet Estimate (NORMAL) Platelet Morphology (NORMAL) RBC Morph Micro Appear (NORMAL) PT 12.3 (9.9-12.6) secs INR 1.1 (0.8-1.2) Sodium 137 (135-145) mmol/L Potassium 4.0 (3.5-4.5) mmol/L Chloride 106 (101-111) mmol/L Carbon Dioxide 24 (21-32) mmol/L Anion Gap 7.0 (6-13) BUN 47 H (6-20) mg/dL Creatinine 0.6 (0.6-1.3) mg/dL Estimated GFR (MDRD) 97 (>89) Glucose 147 H (74-104) mg/dL Calcium 8.8 (8.5-10.3) mg/dL Total Bilirubin 0.4 (0.2-1.0) mg/dL AST 12 (10-42) IU/L ALT 10 (10-60) IU/L Alkaline Phosphatase 36 L (42-121) IU/L Troponin I High Sens 4.8 (2.3-14.8) ng/L B-Natriuretic Peptide 21 (5-100) pg/mL Total Protein 6.1 L (6.4-8.9) g/dL Albumin 3.9 (3.2-5.5) g/dL Globulin 2.2 (2.1-4.2) g/dL Albumin/Globulin Ratio 1.8 (1.0-2.2) Vitamin B12 (180-914) pg/mL TSH (0.34-5.60) uIU/mL Urine Color Urine Clarity (CLEAR) Urine pH (5.0-7.5) PH Ur Specific [place] (1.002-1.030) Urine Protein (NEGATIVE) mg/dL Urine Glucose (UA) (NEGATIVE) mg/dL Urine Ketones (NEGATIVE) mg/dL Urine Occult Blood (NEGATIVE) Urine Nitrite (NEGATIVE) Urine Bilirubin (NEGATIVE) Urine Urobilinogen (NORMAL) E.U./dL Ur Leukocyte Esterase (NEGATIVE) Urine RBC (0-5) /HPF Urine WBC (0-5) /HPF Ur Squamous Epith Cells (<= Few) Urine Bacteria (None Seen) /HPF Urine Culture Comments Nasal Adenovirus (PCR) NOT DETECTED Nasal B. parapertussis DNA (PCR) NOT DETECTED Nasal Coronavir 229E PCR NOT DETECTED Nasal Coronavir HKU1 PCR NOT DETECTED Nasal Coronavir NL63 PCR NOT DETECTED Nasal Coronavir OC43 PCR NOT DETECTED Nasal Enterovir/Rhinovir PCR NOT DETECTED Nasal Influenza B PCR NOT DETECTED Nasal Influenza A PCR NOT DETECTED Nasal Parainfluen 1 PCR NOT DETECTED Nasal Parainfluen 2 PCR NOT DETECTED Nasal Parainfluen 3 PCR NOT DETECTED Nasal Parainfluen 4 PCR NOT DETECTED Nasal RSV (PCR) NOT DETECTED Nasal B.pertussis DNA PCR NOT DETECTED Nasal C.pneumoniae (PCR) NOT DETECTED Nathan Human Metapneumo PCR NOT DETECTED Nasal M.pneumoniae (PCR) NOT DETECTED Nasal SARS-CoV-2 (PCR) NOT DETECTED Blood Type O POSITIVE Blood Type Recheck O POSITIVE Antibody Screen NEGATIVE Crossmatch IS Only See Detail Conclusion and Plan Diagnosis Diagnosis: 1) UGIB - Hgb 8.5 after 1U PRBC with no abdominal pain, hematemesis, or further melena since admission. - presumed NSAID induced, +/- recurrent gastric ulcer - discharge as per hospitalist service, recommend DC on BID Protonix and carafate, avoiding NSAIDS - recommend outpatient EGD in near future to ensure resolution and r/o malignancy 2) History of colon polyps (presumed, possibly high risk given reported h/o of a tattooed lesion) - Consider repeat colonoscopy at time of EGD, unless records show current on surveillance Given reported plan for patient to move out of state with her physician daughter , defer to daughter if she would like to expedite studies prior to move, or establish patient with GI after the move for the studies. Eve Juarez DO [facility] General Surgeon [facility] Review of Systems Status of ROS: 10 or more systems reviewed and unremarkable except as noted in history and below Exam Constitutional normal general appearance and no apparent distress HENMT normocephalic Eyes EOMs intact bilaterally and conjunctivae normal Neck/C-Spine visual inspection normal Lymph no lymphadenopathy noted and no lymphedema noted Respiratory normal respiratory effort Cardiovascular heart rate abnormal (tachycardic) (~105) Gastrointestinal abdomen normal to inspection, abdomen soft to palpation, nontender to palpation and nondistended Extremities normal to inspection Neurology no movement abnormality noted Psychiatry oriented x3 Skin skin color normal
[2024-08-01 10:16] LABS: BASOPHILS % (AUTO) 0.1 %; HCT - HEMATOCRIT 25.8 % (37.0-47.0); HGB - HEMOGLOBIN 8.4 g/dL (12.0-16.0); LYMPHOCYTES # (AUTO) 1.4 10^3/uL (1.5-3.5); MEAN CORPUSCULAR HEMOGLOBIN 30.7 pg (27.0-31.0); MEAN CORPUSCULAR HGB CONC 32.6 g/dL (32.0-36.0); MEAN CORPUSCULAR VOLUME 94.2 fL (81.0-99.0); MEAN PLATELET VOLUME 9.4 fL (7.9-10.8); MONOCYTES # (AUTO) 0.8 10^3/uL (0.0-1.0); MONOCYTES % (AUTO) 6.4 %; NEUTROPHILS # (AUTO) 9.5 10^3/uL (1.5-6.6); NEUTROPHILS % (AUTO) 80.3 %; NRBC ABSOLUTE COUNT (AUTO) 0.07 x10^3/uL; NUCLEATED RED BLOOD CELLS AUTO 0.6 /100WBC; PLT - PLATELET COUNT 282 10^3/uL (130-450); RED BLOOD COUNT 2.74 10^6/uL (4.20-5.40); RED CELL DISTRIBUTION WIDTH 20.9 % (12.0-15.0); WHITE BLOOD COUNT 11.8 x10^3/uL (4.8-10.8)
[2024-08-01] MEDS: iohexoL-300 100 ML VIAL IVP ONE (10:41)
[2024-08-01 10:44] LABS: SLIDE REVIEW? Indicated
[2024-08-01 10:45] LABS: WBC MORPHOLOGY (MULTIPLE) NORMAL APPEARANCE (NORMAL)
[2024-08-01 10:46] LABS: PLATELET ESTIMATE, MANUAL NORMAL (130-450,000) (NORMAL); PLATELET MORPHOLOGY NORMAL APPEARANCE (NORMAL)
--- NOTE | 2024-08-01 11:05 | CT Report ---
PROCEDURE: CT Head W/WO INDICATIONS: memory loss gradual TECHNIQUE: 4.5 mm thick angled axial sections acquired from the foramen magnum to the vertex before and after th e administration of intravenous contrast. For radiation dose reduction, the following was used: aut omated exposure control, adjustment of mA and/or kV according to patient size. CONTRAST: omni 300, 100 COMPARISON: None FINDINGS: Image quality: Excellent. CSF Spaces: Basal cisterns are patent. No extra-axial fluid collections. Ventricles are normal in size and shape. Brain: No midline shift. No intracranial bleeds or masses. No abnormal intracranial enhancement. Bravo-white interface appears normal. Mild global atrophy, less than expected for age, with compensat ory enlargement of the CSF spaces. Skull and face: Calvarium and visualized facial bones appear intact, without suspicious lesions. Sinuses: Visualized sinuses and mastoids are clear. IMPRESSION: No acute intracranial abnormality. Reviewed by: Lili Chirinos MD on 08/01/2024 10:04 AM [facility] Approved by: Lili Chirinos MD on 08/01/2024 10:04 AM [facility] Station ID: [id number]
--- NOTE | 2024-08-01 12:11 | PHARMACY PROGRESS NOTE ---
Best Possible Medication History Admit Date and Time: 07/31/241499501711 Home Medications Medication Instructions Recorded Confirmed Type albuterol sulfate 90 mcg/actuation 1 - 2 puff inhalation Q4HR PRN 01/26/19 07/31/24 History aerosol inhaler (Ventolin HFA) Shortness Of Air/Wheezing atorvastatin 10 mg tablet 10 mg PO DAILY 01/26/19 07/31/24 History ipratropium bromide 17 1 puff inhalation TID ##1 01/26/19 07/31/24 Rx mcg/actuation HFA aerosol inhaler (Atrovent HFA) lisinopril 10 1 ea PO DAILY 01/26/19 07/31/24 History mg-hydrochlorothiazide 12.5 mg tablet metoprolol succinate 50 mg 50 mg PO DAILY 01/26/19 07/31/24 History tablet,extended release 24 hr potassium chloride 10 mEq 10 meq PO 0800 01/26/19 07/31/24 History capsule,extended release Processed by: Pharmacy Medications reviewed in ED?: No Medication History completed: Yes Patient Interview: Pt unable to participate Secondary Source(s): Other family member and Insurance records [facility] Statement: Pt interview by PhT and daughter, [employer] records reviewed. As the person ultimately responsible for medication therapy, providers are able to order a medication from an existing home medication list in [facility] via the "Reconcile Routine" prior to Confirmation of that medication by is support analyst. Such practice is discouraged except when the physician, in their clinical judgment, deems that a medical need exists for a medication without regard to previous use.
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
[2024-08-01 14:41] VITALS: BP 154/62
[2024-08-03 08:08] LABS: RPR Non Reactive (Non Reactive)
== END 2024-08-01 14:44 | disposition home health service (06) ==
LOC: EDUNIT# → MS2 11:42 → ED 11:42 → MS2 15:55
PROVIDERS: ADMIT Specialist; ATTEND Specialist
DX: K27.4 Chronic or unspecified peptic ulcer, site unspecified, with hemorrhage; R00.0 Tachycardia, unspecified; R63.4 Abnormal weight loss; J96.01 Acute respiratory failure with hypoxia; Z66 Do not resuscitate; F43.29 Adjustment disorder with other symptoms; R53.1 Weakness; F32.A Depression, unspecified; T50.916A Underdosing of multiple unspecified drugs, medicaments and biological substances, initial encounter; Z60.2 Problems related to living alone; D62 Acute posthemorrhagic anemia; R41.3 Other amnesia; Z68.20 Body mass index [BMI] 20.0-20.9, adult; J44.1 Chronic obstructive pulmonary disease with (acute) exacerbation; Z91.128 Patient's intentional underdosing of medication regimen for other reason; Z87.891 Personal history of nicotine dependence

== ENCOUNTER 2024-11-10 11:02 | Inpatient (IN) ==
--- NOTE | 2024-11-10 11:08 | ED Physician Documentation ---
PD HPI DYSPNEA Stated complaint Stated Complaint: GEN WEAKNESS/SOA Chief complaint Chief Complaint: General History obtained from History obtained from: Patient and EMS History of Present Illness Timing - onset: How many weeks ago (one) Timing - duration: Weeks (one) Timing - details: Gradual onset (The patient states she has been feeling weaker and short of breath with activity and feeling a bit off balance over the past week. Staff at [facility] noted her more so off balance today and called EMS. She has a yellow to green bruise on her forehead and does not remember falling) and Still present Inciting event(s): No URI Improved by: Rest Worsened by: Exertion; No Laying flat Associated symptoms: Other (general weakness); No Fever, Cough, Wheezing or Bilateral edema Similar symptoms before: Diagnosis (Did have weakness and shortness of breath several months ago and admitted to the hospital for anemia with apparent GI bleed. She denies any melena or such recently.) Recently seen: Admitted (July 2024 for acute blood loss anemia from GI cause. Got transfused. Noted to be hypertensive and started on lisinopril for blood pressure.) [place] Coma Scale Assess Eye opening: Spontaneous Verbal response: Confused Motor response: Obeys Commands Total score: 14 Meds/Allgy Home Medications Ambulatory Orders Medication Instructions Recorded Confirmed albuterol sulfate 90 mcg/actuation 1 - 2 puff inhalation Q4HR PRN 08/01/24 09/15/24 aerosol inhaler (Ventolin HFA) Shortness Of Air/Wheezing #2 grams pantoprazole 40 mg tablet,delayed 40 mg PO BIDAC #60 tabs 08/01/24 09/15/24 release sucralfate 1 gram tablet (Carafate) 1 g PO QACHS #120 tabs 08/01/24 09/15/24 atorvastatin 10 mg tablet 10 mg PO DAILY #90 tabs 09/06/24 09/15/24 metoprolol succinate 50 mg 50 mg PO DAILY #90 tabs 09/06/24 09/15/24 tablet,extended release 24 hr acetaminophen 325 mg tablet 325 mg PO Q4H PRN fever or pain 11/10/24 11/10/24 fluticasone 250 mcg-salmeterol 50 1 inh inhalation BID 11/10/24 11/10/24 mcg/dose blistr powdr for inhalation (Wixela Inhub) levocetirizine 5 mg tablet (24HR 5 mg PO QPM PRN allergy symptoms 11/10/24 11/10/24 Allergy Relief) lisinopril 10 1 tab PO DAILY hypertension 11/10/24 11/10/24 mg-hydrochlorothiazide 12.5 mg tablet Allergies Allergies Allergy/AdvReac Type Severity Reaction Status Date / Time No Known Drug Allergies Allergy Verified 11/10/24 11:15 PFSH Active Problems All Active Problems (Updated 11/10/24 @ 14:13 by Hector Recio MD) History of recent fall (Acute) Acute confusion (Acute) Weakness (Acute) Acute hyponatremia (Acute) Tympanic membrane retraction (Acute) Post menopausal problems (Acute) Elevated blood sugar (Acute) Blood loss anemia (Acute) Melena (Acute) Medical History Medical History (Updated 11/10/24 @ 14:13 by Hector Recio MD) Tachycardia At risk for impaired home maintenance management Weight loss, non-intentional Anemia Acute blood loss anemia Hx of peptic ulcer HLD (hyperlipidemia) HTN (hypertension) COPD (chronic obstructive pulmonary disease) Surgical History Surgical History Hx of hysterectomy Social History Social History Smoking Status: Former smoker If you are a former smoker, when did you quit? (Date/Year): 2009 Number of Years Smoked: 45 Second hand tobacco smoke exposure: No Do you dip or chew tobacco?: No Do you vape?: No Patient requests smoking cessation consult: No Initiate information on smoking cessation: No Relationship: Sibling Level: Assisted Do you feel safe in your home environment?: Yes Suffered physical, verbal, emotional, or financial abuse?: No History of Abuse: No ETOH Use: None Substance Use: cannabis (any form) POLST Patient has POLST: No POLST Status: DNR Exam Constitutional normal general appearance, no apparent distress and average body habitus HENMT head/scalp traumatic other (green/yellow ecchymosis noted left forehead, minimally tender. ) Eyes PERRL and EOMs intact bilaterally Chest inspection of chest normal and palpation of chest normal Cardiovascular normal heart rate noted and regular rhythm noted Gastrointestinal abdomen soft to palpation and nontender to palpation Back/Pelvis no thoracic spine tenderness and no lumbar spine tenderness Neurology certified medical assistant II-XII intact, no movement abnormality noted, no focal motor deficit noted, no sensory deficits noted and GCS calculation - Eye opening: Spontaneous Verbal response: Confused Motor response: Obeys Commands [place] Coma Scale total score: 14 Psychiatry mental status grossly normal, thought process normal (slightly sluggish), cooperative and affect normal Skin skin color normal Results Vitals Vitals: Vital Signs - 24 hr 11/10/24 11:10 Temperature 36.7 C Temperature Source Temporal Artery Scan Pulse Rate 98 Respiratory Rate 18 Blood Pressure 174/66 H O2 Saturation 94 O2 Source Room air Pain Intensity 1 Oxygen O2 Source Room air Labs Labs: Laboratory Tests 11/10/24 11/10/24 11/10/24 11:23 11:26 12:42 WBC 5.9 RBC 4.81 Hgb 14.4 Hct 39.3 MCV 81.7 MCH 29.9 MCHC 36.6 H RDW 11.4 L Plt Count 304 MPV 7.8 L Neut # (Auto) 4.8 Lymph # (Auto) 0.6 L [place] # (Auto) 0.4 Eos # (Auto) 0.0 Baso # (Auto) 0.0 Absolute Nucleated RBC 0.00 Nucleated RBC % 0.0 Sodium 107 L* Potassium 3.1 L Chloride 69 L* Carbon Dioxide 27 Anion Gap 11.0 BUN 11 Creatinine 0.4 L Estimated GFR (MDRD) 154 Glucose 157 H Calcium 8.9 Phosphorus 3.0 Magnesium 1.8 Total Bilirubin 1.0 AST 32 ALT 18 Alkaline Phosphatase 71 Total Protein 6.8 Albumin 4.3 Globulin 2.5 Albumin/Globulin Ratio 1.7 Lipase 73 Urine Color YELLOW Urine Clarity CLEAR Urine pH 7.0 Ur Specific [place] 1.010 Urine Protein NEGATIVE Urine Glucose (UA) NEGATIVE Urine Ketones 15 H Urine Occult Blood NEGATIVE Urine Nitrite NEGATIVE Urine Bilirubin NEGATIVE Urine Urobilinogen 0.2 (NORMAL) Ur Leukocyte Esterase NEGATIVE Ur Microscopic Review NOT INDICATED Urine Culture Comments NOT INDICATED Urine Sodium 51.9 Nasal Adenovirus (PCR) NOT DETECTED Nasal B. parapertussis DNA (PCR) NOT DETECTED Nasal Coronavir 229E PCR NOT DETECTED Nasal Coronavir HKU1 PCR NOT DETECTED Nasal Coronavir NL63 PCR NOT DETECTED Nasal Coronavir OC43 PCR NOT DETECTED Nasal Enterovir/Rhinovir PCR NOT DETECTED Nasal Influenza B PCR NOT DETECTED Nasal Influenza A PCR NOT DETECTED Nasal Parainfluen 1 PCR NOT DETECTED Nasal Parainfluen 2 PCR NOT DETECTED Nasal Parainfluen 3 PCR NOT DETECTED Nasal Parainfluen 4 PCR NOT DETECTED Nasal RSV (PCR) NOT DETECTED Nasal B.pertussis DNA PCR NOT DETECTED Nasal C.pneumoniae (PCR) NOT DETECTED Nathan Human Metapneumo PCR NOT DETECTED Nasal M.pneumoniae (PCR) NOT DETECTED Nasal SARS-CoV-2 (PCR) NOT DETECTED PD Medical Decision Making ED course Complexity details: reviewed old records (Recent hospitalization with a reasonably normal sodium level at that point. The patient had been started on lisinopril per family. I note on the medication list however that it was lisinopril/HCTZ. This may account for the low sodium.), reviewed results (The patient has a quite low sodium level of 107 which is surprising given her level of alertness. Other electrolytes and kidney function are actually good. Her creatinine is actually 0.4.), considered differential (Will evaluate the patient for electrolytes and blood sugar kidney function. She does have a bruise on her forehead so concern for subdural or intracranial bleeding. Head CT will be done. Chest x-ray as well to look for signs of infection.) and d/w family Social Determinants of Health: The patient is actually quite alert and conversant which is surprising for the sodium level. She would like to stay here at this hospital. The patient's sister in the room would prefer that as well. The patient's daughter who lives out of state is an rigging helper/former hospitalist and was preferring The patient transferred to [facility] if possible. We checked with [facility] and they do not have any ICU beds available nor expect any today. So would be at least into tomorrow here in the ER. They did not want to go beyond that such as [facility]/ etc. With those limitations and preferences, it would it least be into tomorrow here in the ER and the family preference would not be to be in the ER that long. With that, the preference of the family would not be to stay here at our facility. I talk with our hospitalist who is comfortable with the patient's treatment and condition. We do have ICU space available. ED course: We did look for causes of weakness and confusion including electrolytes, blood sugar, kidney function, head CT scan and chest x-ray and blood count. The main notable abnormality was the low sodium. The head CT scan did not show any acute abnormalities. Chest x-ray without any obvious tumors. Discharge Plan Discharge Patient Disposition: [facility] DC/Xfer Condition: Stable Clinical Impression: Acute hyponatremia, Weakness, Acute confusion, History of recent fall
[2024-11-10] MEDS: SODIUM CHLORIDE 0.9% 1,000 ML IV STA (11:28)
[2024-11-10] MEDS: ONDANSETRON 4 MG/2 ML VIAL IVP STA (11:28)
[2024-11-10 11:34] LABS: BASOPHILS % (AUTO) 0.5 %; EOSINOPHILS % (AUTO) 0.2 %; HCT - HEMATOCRIT 39.3 % (37.0-47.0); HGB - HEMOGLOBIN 14.4 g/dL (12.0-16.0); LYMPHOCYTES # (AUTO) 0.6 10^3/uL (1.5-3.5); LYMPHOCYTES % (AUTO) 10.1 %; MEAN CORPUSCULAR HEMOGLOBIN 29.9 pg (27.0-31.0); MEAN CORPUSCULAR HGB CONC 36.6 g/dL (32.0-36.0); MEAN CORPUSCULAR VOLUME 81.7 fL (81.0-99.0); MEAN PLATELET VOLUME 7.8 fL (7.9-10.8); MONOCYTES # (AUTO) 0.4 10^3/uL (0.0-1.0); MONOCYTES % (AUTO) 7.3 %; NEUTROPHILS # (AUTO) 4.8 10^3/uL (1.5-6.6); NEUTROPHILS % (AUTO) 81.4 %; PLT - PLATELET COUNT 304 10^3/uL (130-450); RED BLOOD COUNT 4.81 10^6/uL (4.20-5.40); RED CELL DISTRIBUTION WIDTH 11.4 % (12.0-15.0); WHITE BLOOD COUNT 5.9 x10^3/uL (4.8-10.8)
--- NOTE | 2024-11-10 11:35 | XRAY Report ---
PROCEDURE: XR Chest 1V INDICATIONS: dyspnea and cough TECHNIQUE: One view of the chest was acquired. COMPARISON: Chest radiograph 07/31/2024. FINDINGS: Surgical changes and devices: None. Lungs and pleura: No pleural effusions or pneumothorax. Lungs are hyperexpanded. No consolidation. Mediastinum: Mediastinal contours appear normal. Heart size is normal. Aortic atherosclerotic yung cifications present Bones and chest wall: No suspicious bony lesions. Overlying soft tissues appear unremarkable. IMPRESSION: No acute cardiopulmonary process. Reviewed by: Harry Monique MD on 11/10/2024 11:34 AM PDT Approved by: Harry Monique MD on 11/10/2024 11:34 AM PDT Station ID: [id number]
[2024-11-10 11:49] LABS: MAGNESIUM 1.8 mg/dL (1.7-2.3)
[2024-11-10 11:53] LABS: ALBUMIN 4.3 g/dL (3.2-5.5); ALBUMIN/GLOBULIN RATIO 1.7 (1.0-2.2); CALCIUM 8.9 mg/dL (8.5-10.3); CREATININE 0.4 mg/dL (0.6-1.3); POTASSIUM 3.1 mmol/L (3.5-4.5); TOTAL PROTEIN 6.8 g/dL (6.4-8.9)
[2024-11-10 12:22] LABS: B. PARAPERTUSSIS- RESP PCR PAN NOT DETECTED; B. PERTUSSIS- RESP PCR PANEL NOT DETECTED; C. PNEUMONIAE- RESP PCR PANEL NOT DETECTED; CORONAVIRUS 229E-RESP PCR NOT DETECTED; CORONAVIRUS HKU1-RESP PCR NOT DETECTED; CORONAVIRUS NL63-RESP PCR NOT DETECTED; CORONAVIRUS OC43-RESP PCR NOT DETECTED; HUMAN METAPNEUMOVIRUS NOT DETECTED; INFLUENZA A- RESP PCR PANEL NOT DETECTED; INFLUENZA B - RESP PCR PANEL NOT DETECTED; M. PNEUMONIAE- RESP PCR PANEL NOT DETECTED; PARAINFLUENZA VIRUS 1 NOT DETECTED; PARAINFLUENZA VIRUS 2 NOT DETECTED; PARAINFLUENZA VIRUS 4 NOT DETECTED; RHINOVIRUS/ENTEROVIRUS NOT DETECTED; RSV- RESP PCR PANEL NOT DETECTED; SARS-CoV-2 -RESP PCR PANEL NOT DETECTED
--- NOTE | 2024-11-10 12:30 | CT Report ---
PROCEDURE: CT Head WO INDICATIONS: weakness, forehead bruising, fall TECHNIQUE: Noncontrast 4.5 mm thick angled axial sections acquired from the foramen magnum to the vertex. For r adiation dose reduction, the following was used: automated exposure control, adjustment of mA and/or kV according to patient size. COMPARISON: 08/01/2024 FINDINGS: Image quality: Excellent. CSF spaces: Basal cisterns are patent. No extra-axial fluid collections. Ventricles are normal in size and shape. Brain: No midline shift. No intracranial masses or hemorrhage. Bravo-white matter interface is norm al. Skull and face: Calvarium and visualized facial bones are intact, without suspicious lesions. Sinuses: Visualized sinuses and mastoids are clear. IMPRESSION: No acute intracranial pathology. Reviewed by: Tho Soriano MD on 11/10/2024 12:29 PM PDT Approved by: Tho Soriano MD on 11/10/2024 12:29 PM PDT Station ID: [id number]
[2024-11-10 13:06] LABS: BILIRUBIN,URINE NEGATIVE (NEGATIVE); GLUCOSE, URINE (UA) NEGATIVE (NEGATIVE); KETONES,URINE (UA) 15 mg/dL (NEGATIVE); LEUKOCYTE ESTERASE, URINE NEGATIVE (NEGATIVE); NITRITE,URINE NEGATIVE (NEGATIVE); OCCULT BLOOD,URINE NEGATIVE (NEGATIVE); PROTEIN,URINE NEGATIVE (NEGATIVE); UROBILINOGEN,URINE 0.2 (NORMAL) E.U./dL (NORMAL)
[2024-11-10 13:07] LABS: CLARITY,URINE CLEAR (CLEAR)
[2024-11-10] MEDS: SODIUM CHLORIDE 3% HYPERTONIC 50 ML IV STA (13:20)
[2024-11-10] MEDS: POTASSIUM CHLORIDE 20 MEQ TABLET PO STA (13:21)
[2024-11-10] MEDS: SODIUM CHLORIDE 3% HYPERTONIC 500 ML IV ONE (13:36)
[2024-11-10] MEDS ORDERED: SODIUM CHLORIDE 3% HYPERTONIC 50 ML IV ONE (14:00)
--- NOTE | 2024-11-10 14:13 | HISTORY & PHYSICAL EXAMINATION ---
Chief Complaint Chief Complaint Chief Complaint: Weakness, tired History of Present Illness Admitted From Admitted From:: Home History Obtained From Records Reviewed: EMR History obtained from: Patient, patient's sister, patient's daughter Exam Limitations: None History of Present Illness HPI Comment/Other: Patient is a 79-year-old female with a history of hypertension on hydrochlorothiazide, peptic ulcer disease presented for worsening fatigue. She states that for the last week, she has had a decreased appetite. She states that she began drinking two 20 ounce cups of water. However, she is not eating much. She denies any nausea or vomiting. She has had no diarrhea. In fact, she usually is constipated. Her sister dropped the fluid for her. She is able to make protein shakes on her home. However, for the past week, she has been so weak, she has been not able to get out of bed to eat. She states she just does not feel like eating. Of note, she was here in July for melena, as well as acute blood loss anemia. She was supposed to follow-up outpatient to complete EGD, but was unable to do so. She lives on her own, and her sister drops by every few days to help feed her, and take care of her. Her daughter lives in [place], would like her mother to move with her, but the patient is insistent on staying in the home she has been in for 40 years. She lost her 2 years ago, and struggling with depression, which she thinks is contributing to her low appetite. In the ER, patient was vitally stable. Her blood pressure was elevated at 160/86, heart rate was in the low 100s, she was afebrile, saturating 95% on room air. Lab work showed no leukocytosis. Her hemoglobin is stable now at 14.4. Her sodium was 107 on admission. Potassium was also low at 3.1. Her creatinine is within normal limits at 0.4, and her Leukos was elevated at 157. She was started on hypertonic saline, as well as DDAVP to correct for osmotic diuresis and rapid correction. Meds/Allgy Home Medications Ambulatory Orders Medication Instructions Recorded Confirmed albuterol sulfate 90 mcg/actuation 1 - 2 puff inhalation Q4HR PRN 08/01/24 11/10/24 aerosol inhaler (Ventolin HFA) Shortness Of Air/Wheezing #2 grams pantoprazole 40 mg tablet,delayed 40 mg PO BIDAC #60 tabs 08/01/24 11/10/24 release sucralfate 1 gram tablet (Carafate) 1 g PO QACHS #120 tabs 08/01/24 11/10/24 atorvastatin 10 mg tablet 10 mg PO DAILY #90 tabs 09/06/24 11/10/24 metoprolol succinate 50 mg 50 mg PO DAILY #90 tabs 09/06/24 11/10/24 tablet,extended release 24 hr acetaminophen 325 mg tablet 325 mg PO Q4H PRN fever or pain 11/10/24 11/10/24 fluticasone 250 mcg-salmeterol 50 1 inh inhalation BID 11/10/24 11/10/24 mcg/dose blistr powdr for inhalation (Wixela Inhub) levocetirizine 5 mg tablet (24HR 5 mg PO QPM PRN allergy symptoms 11/10/24 11/10/24 Allergy Relief) lisinopril 10 1 tab PO DAILY hypertension 11/10/24 11/10/24 mg-hydrochlorothiazide 12.5 mg tablet Allergies Allergies Allergy/AdvReac Type Severity Reaction Status Date / Time No Known Drug Allergies Allergy Verified 11/10/24 11:15 PFSH Active Problems All Active Problems (Updated 11/10/24 @ 14:13 by Hector Recio MD) History of recent fall (Acute) Acute confusion (Acute) Weakness (Acute) Acute hyponatremia (Acute) Tympanic membrane retraction (Acute) Post menopausal problems (Acute) Elevated blood sugar (Acute) Blood loss anemia (Acute) Melena (Acute) Medical History Medical History (Updated 11/10/24 @ 14:13 by Hector Recio MD) Tachycardia At risk for impaired home maintenance management Weight loss, non-intentional Anemia Acute blood loss anemia Hx of peptic ulcer HLD (hyperlipidemia) HTN (hypertension) COPD (chronic obstructive pulmonary disease) Surgical History Surgical History Hx of hysterectomy Social History Social History Smoking Status: Unknown if ever smoked If you are a former smoker, when did you quit? (Date/Year): 2009 Number of Years Smoked: 45 Second hand tobacco smoke exposure: No Do you dip or chew tobacco?: No Do you vape?: No Patient requests smoking cessation consult: No Initiate information on smoking cessation: No Relationship: Level: Independent Home Mobility Equipment: Walker Do you feel safe in your home environment?: Yes Suffered physical, verbal, emotional, or financial abuse?: No History of Abuse: No ETOH Use: None Substance Use: denies use POLST Patient has POLST: No POLST Status: DNR Review of Systems Constitutional Reports: Fatigue, Chills, Malaise, Weakness, Poor appetite and Weight loss; Denies: Fever Eyes Denies: Pain, Irritation, Amaurosis, Blurry vision or Floaters Ears, nose, mouth, and throat Reports: Hearing loss and Change in hearing; Denies: Ear pain, Ear discharge, Hearing aids or Neck pain Cardiovascular Reports: lightheadedness and shortness of breath with exertion; Denies: Irregular heart rate, chest pain, palpitations, edema, swelling of feet/ankles or Syncope Respiratory Reports: Shortness of breath; Denies: Cough, Sputum production, Change in phlegm color, Wheezing or Apnea Gastrointestinal Reports: Poor appetite and Constipation; Denies: Abdominal pain, Abdominal distention, Nausea, Vomiting or Diarrhea Genitourinary Denies: Painful urination, Urinary frequency, Urinary urgency, Nocturia or Urinary incontinence Musculoskeletal Denies: Back pain, Neck pain, Extremity pain, Extremity swelling or Gout Integumentary/Breast Denies: Rash, Itching, Dryness, Redness or Skin pain Neurological Reports: General weakness, Weakness in extremities, Confusion and Memory problems; Denies: Headache, Focal weakness or Numbness in extremities Psychiatric Reports: Depression; Denies: Anxiety, Mood swings, Panic attacks or Change in sleep pattern Endocrine Reports: Fatigue; Denies: Excessive urination, Excessive thirst or Polyphagia Hematologic/Lymphatic Denies: Anemia, Easy bruising or Petechiae Allergic/Immunologic Denies: Wheezing Prior Level of Functionality: Lives alone. Sister lives nearby. They are looking to getting caregivers to help with her activities of daily living. Exam Exam A very gaunt and cachectic tiny elderly female. Burst into tears when she starts talking about how much she misses her . She is 4 foot 11 inches tall, 41 kg. Constitutional no apparent distress HENMT normocephalic, head/scalp atraumatic, hearing grossly abnormal (Slight deafness), oral mucous membranes abnormal (Dry oral mucosa) (dry) and dentition abnormal other (Dentures) Eyes PERRL, EOMs intact bilaterally, conjunctivae normal and no scleral icterus Neck/C-Spine supple Lymph no lymphadenopathy noted Chest inspection of chest normal Respiratory breath sounds equal bilaterally, normal respiratory effort, auscultation abnormal (vesicular breath sounds) (Scattered rhonchi. Occasional cough where she brings up clear phlegm.), no wheezes, no rales, no retractions and no use of accessory muscles Cardiovascular normal heart rate noted, regular rhythm noted and murmur noted (systolic) (Left lower sternal border and right upper sternal border. Nonradiating) Gastrointestinal abdomen normal to inspection, abdomen soft to palpation, nontender to palpation, nontender to percussion, nondistended and normoactive bowel sounds Genitourinary no CVA tenderness Back/Pelvis spine normal to inspection Extremities abnormal to inspection (Profound loss of muscle mass. Very cachectic.), no tenderness and full ROM Neurology student career development specialist II-XII intact, no movement abnormality noted, no focal motor deficit noted, no sensory deficits noted and speech normal Psychiatry mental status grossly normal, oriented x3 (Oriented but hesitant in her history. Vague on date sometimes.), thought process normal (She cannot really tell me why she has never establish yourself with a PCP ), cooperative and affect normal Skin skin color normal, no wounds, no lacerations and nails normal (Clubbing and paleness of the nailbeds) Conclusion/Plan Problem List (1) Acute hyponatremia: Plan: Patient presents with severe hyponatremia of 107. She endorses some decreased p.o. intake. Urine sodium was 50, but this was collected after IV fluids were administered, which decreases its utility. Serum osmolality, urine osmolality are also ordered, remain pending. Will start patient on 3% hypertonic saline at a rate of 15 cc/h, as well as DDAVP 1 mcg every 8 hours to prevent rapid overcorrection. Goal is 6 mill equivalents over 24 hours; i.e. goal is for sodium to be 113 by tomorrow afternoon, 122 by 11/11 afternoon. Will continue to trend BMPs every 3 hours until sodium is greater than 125. (2) Hx of peptic ulcer: Plan: Continue Protonix, Carafate. (3) HTN (hypertension): Plan: Resume patient's home metoprolol and lisinopril. Hold hydrochlorothiazide indefinitely. Qualifiers: Hypertension type: primary hypertension Qualified Code(s): I10 - Essential (primary) hypertension (4) Weight loss, non-intentional: Plan: Attributed to poor self care after loss of her . May be interested in antidepressant to help with weight management and appetite stimulation. Lab Results Lab results reviewed: Yes 11/10/24 11:26 11/10/24 14:54 Diagnostic Imaging Results Diagnostic Imaging Results: positive Final report reviewed Diagnostic Imaging Results Comments: Chest x-ray does not have any acute cardiopulmonary findings EKG Results EKG Interpreted Independently: No Core Measures Anticipated LOS I expect patient to be DC'd or transferred within 96 hours.: Yes DVT/VTE - Prophylaxis VTE/DVT Device ordered at admit?: Yes
--- NOTE | 2024-11-10 14:18 | PHARMACY PROGRESS NOTE ---
Best Possible Medication History Admit Date and Time: 11/10/24 [id number] Home Medications Medication Instructions Recorded Confirmed Type albuterol sulfate 90 mcg/actuation 1 - 2 puff inhalation Q4HR PRN 08/01/24 11/10/24 Rx aerosol inhaler (Ventolin HFA) Shortness Of Air/Wheezing #2 grams pantoprazole 40 mg tablet,delayed 40 mg PO BIDAC #60 tabs 08/01/24 11/10/24 Rx release sucralfate 1 gram tablet (Carafate) 1 g PO QACHS #120 tabs 08/01/24 11/10/24 Rx atorvastatin 10 mg tablet 10 mg PO DAILY #90 tabs 09/06/24 11/10/24 Rx metoprolol succinate 50 mg 50 mg PO DAILY #90 tabs 09/06/24 11/10/24 Rx tablet,extended release 24 hr acetaminophen 325 mg tablet 325 mg PO Q4H PRN fever or pain 11/10/24 11/10/24 History fluticasone 250 mcg-salmeterol 50 1 inh inhalation BID 11/10/24 11/10/24 History mcg/dose blistr powdr for inhalation (Wixela Inhub) levocetirizine 5 mg tablet (24HR 5 mg PO QPM PRN allergy symptoms 11/10/24 11/10/24 History Allergy Relief) lisinopril 10 1 tab PO DAILY hypertension 11/10/24 11/10/24 History mg-hydrochlorothiazide 12.5 mg tablet Processed by: Pharmacy Medications reviewed in ED?: Yes Medication History completed: Yes Patient Interview: Completed Secondary Source(s): Written medication list, Other family member and Insurance records [facility] Statement: As the person ultimately responsible for medication therapy, providers are able to order a medication from an existing home medication list in [facility] via the "Reconcile Routine" prior to Confirmation of that medication by passport support associate. Such practice is discouraged except when the physician, in their clinical judgment, deems that a medical need exists for a medication without regard to previous use.
[2024-11-10 15:18] LABS: CALCIUM 8.3 mg/dL (8.5-10.3); CREATININE 0.3 mg/dL (0.6-1.3); POTASSIUM 3.1 mmol/L (3.5-4.5)
[2024-11-10] MEDS ORDERED: SODIUM CHLORIDE FLUSH 0.9% 10 ML SYRINGE IVP PRN (15:29)
[2024-11-10] MEDS: DESMOPRESSIN 4 MCG/ML AMP IVP SCH (15:42)
[2024-11-10] MEDS: SODIUM CHLORIDE FLUSH 0.9% 10 ML SYRINGE IVP SCH (15:43)
[2024-11-10] MEDS: PANTOPRAZOLE 40 MG TABLET PO SCH (15:43)
[2024-11-10] MEDS: SODIUM CHLORIDE 3% HYPERTONIC 500 ML IV SCH (16:16)
[2024-11-10 18:31] LABS: CALCIUM 8.7 mg/dL (8.5-10.3); CREATININE 0.4 mg/dL (0.6-1.3); POTASSIUM 3.4 mmol/L (3.5-4.5)
[2024-11-10] MEDS ORDERED: ONDANSETRON 4 MG/2 ML VIAL IVP PRN (19:54)
[2024-11-10] MEDS ORDERED: ONDANSETRON ODT 4 MG TABLET TL PRN (19:54)
[2024-11-10 21:24] LABS: CALCIUM 8.6 mg/dL (8.5-10.3); CREATININE 0.4 mg/dL (0.6-1.3)
[2024-11-10] MEDS: ethyl alcohoL 62% SWAB AMPULE NAS SCH (22:07)
[2024-11-10] MEDS: MELATONIN 3 MG TABLET PO SCH (22:08)
[2024-11-10] MEDS: traZODone 50 MG TABLET PO SCH (22:08)
[2024-11-11 01:03] LABS: CALCIUM 8.7 mg/dL (8.5-10.3); CREATININE 0.4 mg/dL (0.6-1.3); POTASSIUM 3.5 mmol/L (3.5-4.5)
[2024-11-11] MEDS: IPRATROPIUM/ALBUTEROL 3 ML NEB INH PRN (01:36)
[2024-11-11 03:49] LABS: CALCIUM 8.8 mg/dL (8.5-10.3); CREATININE 0.4 mg/dL (0.6-1.3); POTASSIUM 3.5 mmol/L (3.5-4.5)
[2024-11-11 06:05] LABS: BASOPHILS % (AUTO) 0.3 %; EOSINOPHILS % (AUTO) 0.4 %; HCT - HEMATOCRIT 35.9 % (37.0-47.0); HGB - HEMOGLOBIN 13.2 g/dL (12.0-16.0); LYMPHOCYTES # (AUTO) 0.6 10^3/uL (1.5-3.5); LYMPHOCYTES % (AUTO) 7.6 %; MEAN CORPUSCULAR HEMOGLOBIN 30.8 pg (27.0-31.0); MEAN CORPUSCULAR HGB CONC 36.8 g/dL (32.0-36.0); MEAN CORPUSCULAR VOLUME 83.7 fL (81.0-99.0); MEAN PLATELET VOLUME 7.9 fL (7.9-10.8); MONOCYTES # (AUTO) 0.8 10^3/uL (0.0-1.0); MONOCYTES % (AUTO) 11.1 %; NEUTROPHILS # (AUTO) 5.8 10^3/uL (1.5-6.6); NEUTROPHILS % (AUTO) 80.3 %; PLT - PLATELET COUNT 250 10^3/uL (130-450); RED BLOOD COUNT 4.29 10^6/uL (4.20-5.40); RED CELL DISTRIBUTION WIDTH 11.4 % (12.0-15.0); WHITE BLOOD COUNT 7.2 x10^3/uL (4.8-10.8)
[2024-11-11 06:16] LABS: CALCIUM, IONIZED 1.13 mmol/L (1.09-1.30); VBG PH 7.467 (7.31-7.41)
[2024-11-11 06:19] LABS: MAGNESIUM 1.7 mg/dL (1.7-2.3)
[2024-11-11 06:26] LABS: CALCIUM 8.5 mg/dL (8.5-10.3); CREATININE 0.4 mg/dL (0.6-1.3); POTASSIUM 3.6 mmol/L (3.5-4.5)
[2024-11-11] MEDS: MAGNESIUM OXIDE 400 MG TABLET PO ONE (06:53)
[2024-11-11] MEDS: POTASSIUM CHLORIDE 20 MEQ TABLET PO ONE (06:54)
[2024-11-11] MEDS: ATORVASTATIN 10 MG TABLET PO SCH (08:35)
[2024-11-11] MEDS: METOPROLOL SUCCINATE 50 MG TABLET PO SCH (08:35)
[2024-11-11] MEDS: polyethylene glycoL 3350 17 GM PACKET PO SCH (08:35)
[2024-11-11] MEDS: lisinopriL 20 MG TABLET PO SCH (08:35)
[2024-11-11] MEDS ORDERED: ZOLPIDEM 5 MG TABLET PO PRN (08:35)
[2024-11-11] MEDS ORDERED: ACETAMINOPHEN 325 MG TABLET PO PRN (08:40)
--- NOTE | 2024-11-11 08:40 | PROVIDER PROGRESS NOTE ---
Subjective Subjective Subjective: Today, patient feels better. She still has a poor appetite. She is open to drinking some protein shakes, ensures. A lot of her loss of appetite comes from her depression after her a few years ago. She has been eating less, and has had less of an appetite since. We spoke about starting mirtazapine to help with her mood, as well as appetite, she is agreeable to start. She has no nausea, no vomiting. She did not get much sleep last night. Her primary care provider has prescribed her Ambien in the past which has helped. She states that melatonin gives her restless legs. Current Medications Current Medications Current Medications: Current Medications Generic Name Dose Route Start Last Admin Trade Name Freq PRN Reason Stop Dose Admin Albuterol/Ipratropium 3 ml 11/10/24 16:52 11/11/24 01:36 Ipratropium/Albuterol 3 Ml Neb INH 3 ml RTQID PRN Administration Shortness of Air/Wheezing Alcohol 1 amp 11/10/24 21:00 11/11/24 08:35 Ethyl Alcohol 62% Swab Ampule BRIAN 1 amp BID ROGELIO Administration Atorvastatin Calcium 10 mg 11/11/24 09:00 11/11/24 08:35 Atorvastatin 10 Mg Tablet PO 10 mg DAILY ROGELIO Administration Desmopressin Acetate 1 mcg 11/10/24 14:00 11/11/24 06:53 Desmopressin 4 Mcg/Ml Amp IVP 1 mcg Q8HR ROGELIO Administration Sodium Chloride 500 mls @ 15 mls/hr 11/10/24 15:29 11/10/24 18:46 Sodium Chloride 3% Hypertonic IV 11/12/24 00:48 15 mls/hr .[id number] ROGELIO Administration Lisinopril 20 mg 11/11/24 09:00 11/11/24 08:35 Lisinopril 20 Mg Tablet PO 20 mg DAILY ROGELIO Administration Melatonin 3 mg 11/10/24 21:00 11/10/24 22:08 Melatonin 3 Mg Tablet PO Not Given QPM ROGELIO Metoprolol Succinate 50 mg 11/11/24 09:00 11/11/24 08:35 Metoprolol Succinate 50 Mg Tablet PO 50 mg DAILY ROGELIO Administration Mirtazapine 15 mg 11/11/24 21:00 Mirtazapine 15 Mg Tablet PO QPM ROGELIO Ondansetron HCl 4 mg 11/10/24 19:54 Ondansetron 4 Mg/2 Ml Vial IVP Q6HR PRN Nausea / Vomiting Ondansetron HCl 4 mg 11/10/24 19:54 Ondansetron Odt 4 Mg Tablet TL Q6HR PRN Nausea / Vomiting Pantoprazole Sodium 40 mg 11/10/24 16:00 11/11/24 06:53 Pantoprazole 40 Mg Tablet PO 40 mg BIDAC ROGELIO Administration Polyethylene Glycol 17 gm 11/11/24 09:00 11/11/24 08:35 Polyethylene Glycol 3350 17 Gm Packet PO 17 gm DAILY ROGELIO Administration Sodium Chloride 10 ml 11/10/24 17:00 11/11/24 08:36 Sodium Chloride Flush 0.9% 10 Ml Syringe IVP 10 ml 0100,0900,1700 ROGELIO Administration Sodium Chloride 10 ml 11/10/24 15:29 Sodium Chloride Flush 0.9% 10 Ml Syringe IVP PRN PRN NEEDED PER PROVIDER ORDERS Trazodone HCl 50 mg 11/11/24 21:00 Trazodone 50 Mg Tablet PO QPM ROGELIO Trazodone HCl 50 mg 11/10/24 22:00 11/10/24 22:08 Trazodone 50 Mg Tablet PO 50 mg QPM ROGELIO Administration Zolpidem Tartrate 5 mg 11/11/24 08:35 Zolpidem 5 Mg Tablet PO QPM PRN Insomnia Objective Vital Signs/Intake & Output Reviewed Vital Signs: Yes Vital Signs: Vital Signs x48h Temp Pulse Pulse Resp BP BP Pulse Ox 11/11/24 07:00 107 H 22 159/68 H 97 11/11/24 06:00 97.9 F 92 13 146/78 H 97 11/11/24 05:00 106 H 20 161/69 H 98 11/11/24 04:00 114 H 22 151/76 H 97 11/11/24 03:00 105 H 17 148/64 H 97 11/11/24 02:00 125 H 16 145/70 H 97 11/11/24 01:37 109 H 18 11/11/24 01:37 11/11/24 01:00 101 H 16 140/61 H 97 O2 Flow Rate 11/11/24 07:00 11/11/24 06:00 11/11/24 05:00 1 11/11/24 04:00 1 11/11/24 03:00 1 11/11/24 02:00 1 11/11/24 01:37 1 11/11/24 01:37 1 11/11/24 01:00 1 Intake & Output: Intake & Output 11/08/24 11/09/24 11/10/24 11/11/24 23:59 23:59 23:59 23:59 Intake Total 1607 / 1607 336 / 336 Output Total 75 / 75 150 / 150 Balance 1532 / 1532 186 / 186 Weight (kg) 41 kg 41.5 kg Objective General Appearance: positive No acute distress and Alert; negative Anxious Eyes Bilateral: positive Normal inspection, PERRL and EOMI ENT: positive ENT inspection nml, Pharynx nml and No signs of dehydration Neck: positive Nml inspection, Thyroid nml and No JVD Respiratory: positive Chest non-tender, No respiratory distress and Breath sounds nml; negative Wheezes, Rales or Rhonchi Cardiovascular: positive No murmur and Tachycardia; negative Systolic murmur, Diastolic murmur or Crepitus Abdomen: positive Non-tender and No distention; negative Guarding, Rebound, Hepatomegaly, Splenomegaly or Mass Back: positive Nml inspection; negative CVA tenderness (R) or CVA tenderness (L) Skin: positive Color nml, No rash, Warm and Dry Extremities: positive Non-tender, Full ROM and No pedal edema Neurologic/Psychiatric: positive Oriented x3, Motor nml and Mood/affect nml Lab Results 11/11/24 05:26 11/11/24 05:26 Other Labs: Lab Results x24hrs 11/11/24 11/11/24 11/11/24 Range/Units 05:26 03:10 00:21 WBC 7.2 (4.8-10.8) x10^3/uL RBC 4.29 (4.20-5.40) 10^6/uL Hgb 13.2 (12.0-16.0) g/dL Hct 35.9 L (37.0-47.0) % MCV 83.7 (81.0-99.0) fL MCH 30.8 (27.0-31.0) pg MCHC 36.8 H (32.0-36.0) g/dL RDW 11.4 L (12.0-15.0) % Plt Count 250 (130-450) 10^3/uL MPV 7.9 (7.9-10.8) fL Neut # (Auto) 5.8 (1.5-6.6) 10^3/uL Lymph # (Auto) 0.6 L (1.5-3.5) 10^3/uL Bowman # (Auto) 0.8 (0.0-1.0) 10^3/uL Eos # (Auto) 0.0 (0.0-0.7) 10^3/uL Baso # (Auto) 0.0 (0.0-0.1) 10^3/uL Absolute Nucleated RBC 0.00 x10^3/uL Nucleated RBC % 0.0 /100WBC VBG pH 7.467 H (7.31-7.41) Ionized Calcium 1.13 (1.09-1.30) mmol/L Sodium 113 L* 113 L* 113 L* (135-145) mmol/L Potassium 3.6 3.5 3.5 (3.5-4.5) mmol/L Chloride 80 L* 80 L* 80 L* (101-111) mmol/L Carbon Dioxide 27 24 25 (21-32) mmol/L Anion Gap 6.0 9.0 8.0 (6-13) BUN 9 9 8 (6-20) mg/dL Creatinine 0.4 L 0.4 L 0.4 L (0.6-1.3) mg/dL Estimated GFR (MDRD) 154 154 154 (>89) Glucose 112 H 129 H 134 H (74-104) mg/dL Calcium 8.5 8.8 8.7 (8.5-10.3) mg/dL Phosphorus 2.5 (2.5-5.0) mg/dL Magnesium 1.7 (1.7-2.3) mg/dL Total Bilirubin (0.2-1.0) mg/dL AST (10-42) IU/L ALT (10-60) IU/L Alkaline Phosphatase (42-121) IU/L Total Protein (6.4-8.9) g/dL Albumin (3.2-5.5) g/dL Globulin (2.1-4.2) g/dL Albumin/Globulin Ratio (1.0-2.2) Lipase (11-82) U/L Urine Color Urine Clarity (CLEAR) Urine pH (5.0-7.5) PH Ur Specific Whiteface (1.002-1.030) Urine Protein (NEGATIVE) mg/dL Urine Glucose (UA) (NEGATIVE) mg/dL Urine Ketones (NEGATIVE) mg/dL Urine Occult Blood (NEGATIVE) Urine Nitrite (NEGATIVE) Urine Bilirubin (NEGATIVE) Urine Urobilinogen (NORMAL) E.U./dL Ur Leukocyte Esterase (NEGATIVE) Ur Microscopic Review Urine Culture Comments Urine Sodium mmol/L Nasal Adenovirus (PCR) Nasal B. parapertussis DNA (PCR) Nasal Coronavir 229E PCR Nasal Coronavir HKU1 PCR Nasal Coronavir NL63 PCR Nasal Coronavir OC43 PCR Nasal Enterovir/Rhinovir PCR Nasal Influenza B PCR Nasal Influenza A PCR Nasal Parainfluen 1 PCR Nasal Parainfluen 2 PCR Nasal Parainfluen 3 PCR Nasal Parainfluen 4 PCR Nasal RSV (PCR) Nasal Screen MRSA (PCR) (NEGATIVE) Nasal B.pertussis DNA PCR Nasal C.pneumoniae (PCR) Brian Human Metapneumo PCR Nasal M.pneumoniae (PCR) Nasal SARS-CoV-2 (PCR) 11/10/24 11/10/24 11/10/24 Range/Units 20:55 18:05 15:15 WBC (4.8-10.8) x10^3/uL RBC (4.20-5.40) 10^6/uL Hgb (12.0-16.0) g/dL Hct (37.0-47.0) % MCV (81.0-99.0) fL MCH (27.0-31.0) pg MCHC (32.0-36.0) g/dL RDW (12.0-15.0) % Plt Count (130-450) 10^3/uL MPV (7.9-10.8) fL Neut # (Auto) (1.5-6.6) 10^3/uL Lymph # (Auto) (1.5-3.5) 10^3/uL Bowman # (Auto) (0.0-1.0) 10^3/uL Eos # (Auto) (0.0-0.7) 10^3/uL Baso # (Auto) (0.0-0.1) 10^3/uL Absolute Nucleated RBC x10^3/uL Nucleated RBC % /100WBC VBG pH (7.31-7.41) Ionized Calcium (1.09-1.30) mmol/L Sodium 114 L* 111 L* (135-145) mmol/L Potassium 4.0 3.4 L (3.5-4.5) mmol/L Chloride 81 L 78 L* (101-111) mmol/L Carbon Dioxide 24 25 (21-32) mmol/L Anion Gap 9.0 8.0 (6-13) BUN 9 9 (6-20) mg/dL Creatinine 0.4 L 0.4 L (0.6-1.3) mg/dL Estimated GFR (MDRD) 154 154 (>89) Glucose 111 H 138 H (74-104) mg/dL Calcium 8.6 8.7 (8.5-10.3) mg/dL Phosphorus (2.5-5.0) mg/dL Magnesium (1.7-2.3) mg/dL Total Bilirubin (0.2-1.0) mg/dL AST (10-42) IU/L ALT (10-60) IU/L Alkaline Phosphatase (42-121) IU/L Total Protein (6.4-8.9) g/dL Albumin (3.2-5.5) g/dL Globulin (2.1-4.2) g/dL Albumin/Globulin Ratio (1.0-2.2) Lipase (11-82) U/L Urine Color Urine Clarity (CLEAR) Urine pH (5.0-7.5) PH Ur Specific Whiteface (1.002-1.030) Urine Protein (NEGATIVE) mg/dL Urine Glucose (UA) (NEGATIVE) mg/dL Urine Ketones (NEGATIVE) mg/dL Urine Occult Blood (NEGATIVE) Urine Nitrite (NEGATIVE) Urine Bilirubin (NEGATIVE) Urine Urobilinogen (NORMAL) E.U./dL Ur Leukocyte Esterase (NEGATIVE) Ur Microscopic Review Urine Culture Comments Urine Sodium mmol/L Nasal Adenovirus (PCR) Nasal B. parapertussis DNA (PCR) Nasal Coronavir 229E PCR Nasal Coronavir HKU1 PCR Nasal Coronavir NL63 PCR Nasal Coronavir OC43 PCR Nasal Enterovir/Rhinovir PCR Nasal Influenza B PCR Nasal Influenza A PCR Nasal Parainfluen 1 PCR Nasal Parainfluen 2 PCR Nasal Parainfluen 3 PCR Nasal Parainfluen 4 PCR Nasal RSV (PCR) Nasal Screen MRSA (PCR) POSITIVE A* (NEGATIVE) Nasal B.pertussis DNA PCR Nasal C.pneumoniae (PCR) Brian Human Metapneumo PCR Nasal M.pneumoniae (PCR) Nasal SARS-CoV-2 (PCR) 11/10/24 11/10/24 11/10/24 Range/Units 14:54 12:42 11:26 WBC 5.9 (4.8-10.8) x10^3/uL RBC 4.81 (4.20-5.40) 10^6/uL Hgb 14.4 (12.0-16.0) g/dL Hct 39.3 (37.0-47.0) % MCV 81.7 (81.0-99.0) fL MCH 29.9 (27.0-31.0) pg MCHC 36.6 H (32.0-36.0) g/dL RDW 11.4 L (12.0-15.0) % Plt Count 304 (130-450) 10^3/uL MPV 7.8 L (7.9-10.8) fL Neut # (Auto) 4.8 (1.5-6.6) 10^3/uL Lymph # (Auto) 0.6 L (1.5-3.5) 10^3/uL Bowman # (Auto) 0.4 (0.0-1.0) 10^3/uL Eos # (Auto) 0.0 (0.0-0.7) 10^3/uL Baso # (Auto) 0.0 (0.0-0.1) 10^3/uL Absolute Nucleated RBC 0.00 x10^3/uL Nucleated RBC % 0.0 /100WBC VBG pH (7.31-7.41) Ionized Calcium (1.09-1.30) mmol/L Sodium 111 L* 107 L* (135-145) mmol/L Potassium 3.1 L 3.1 L (3.5-4.5) mmol/L Chloride 76 L* 69 L* (101-111) mmol/L Carbon Dioxide 26 27 (21-32) mmol/L Anion Gap 9.0 11.0 (6-13) BUN 8 11 (6-20) mg/dL Creatinine 0.3 L 0.4 L (0.6-1.3) mg/dL Estimated GFR (MDRD) 215 154 (>89) Glucose 138 H 157 H (74-104) mg/dL Calcium 8.3 L 8.9 (8.5-10.3) mg/dL Phosphorus 3.0 (2.5-5.0) mg/dL Magnesium 1.8 (1.7-2.3) mg/dL Total Bilirubin 1.0 (0.2-1.0) mg/dL AST 32 (10-42) IU/L ALT 18 (10-60) IU/L Alkaline Phosphatase 71 (42-121) IU/L Total Protein 6.8 (6.4-8.9) g/dL Albumin 4.3 (3.2-5.5) g/dL Globulin 2.5 (2.1-4.2) g/dL Albumin/Globulin Ratio 1.7 (1.0-2.2) Lipase 73 (11-82) U/L Urine Color YELLOW Urine Clarity CLEAR (CLEAR) Urine pH 7.0 (5.0-7.5) PH Ur Specific Whiteface 1.010 (1.002-1.030) Urine Protein NEGATIVE (NEGATIVE) mg/dL Urine Glucose (UA) NEGATIVE (NEGATIVE) mg/dL Urine Ketones 15 H (NEGATIVE) mg/dL Urine Occult Blood NEGATIVE (NEGATIVE) Urine Nitrite NEGATIVE (NEGATIVE) Urine Bilirubin NEGATIVE (NEGATIVE) Urine Urobilinogen 0.2 (NORMAL) (NORMAL) E.U./dL Ur Leukocyte Esterase NEGATIVE (NEGATIVE) Ur Microscopic Review NOT INDICATED Urine Culture Comments NOT INDICATED Urine Sodium 51.9 mmol/L Nasal Adenovirus (PCR) Nasal B. parapertussis DNA (PCR) Nasal Coronavir 229E PCR Nasal Coronavir HKU1 PCR Nasal Coronavir NL63 PCR Nasal Coronavir OC43 PCR Nasal Enterovir/Rhinovir PCR Nasal Influenza B PCR Nasal Influenza A PCR Nasal Parainfluen 1 PCR Nasal Parainfluen 2 PCR Nasal Parainfluen 3 PCR Nasal Parainfluen 4 PCR Nasal RSV (PCR) Nasal Screen MRSA (PCR) (NEGATIVE) Nasal B.pertussis DNA PCR Nasal C.pneumoniae (PCR) Brian Human Metapneumo PCR Nasal M.pneumoniae (PCR) Nasal SARS-CoV-2 (PCR) 11/10/24 Range/Units 11:23 WBC (4.8-10.8) x10^3/uL RBC (4.20-5.40) 10^6/uL Hgb (12.0-16.0) g/dL Hct (37.0-47.0) % MCV (81.0-99.0) fL MCH (27.0-31.0) pg MCHC (32.0-36.0) g/dL RDW (12.0-15.0) % Plt Count (130-450) 10^3/uL MPV (7.9-10.8) fL Neut # (Auto) (1.5-6.6) 10^3/uL Lymph # (Auto) (1.5-3.5) 10^3/uL Bowman # (Auto) (0.0-1.0) 10^3/uL Eos # (Auto) (0.0-0.7) 10^3/uL Baso # (Auto) (0.0-0.1) 10^3/uL Absolute Nucleated RBC x10^3/uL Nucleated RBC % /100WBC VBG pH (7.31-7.41) Ionized Calcium (1.09-1.30) mmol/L Sodium (135-145) mmol/L Potassium (3.5-4.5) mmol/L Chloride (101-111) mmol/L Carbon Dioxide (21-32) mmol/L Anion Gap (6-13) BUN (6-20) mg/dL Creatinine (0.6-1.3) mg/dL Estimated GFR (MDRD) (>89) Glucose (74-104) mg/dL Calcium (8.5-10.3) mg/dL Phosphorus (2.5-5.0) mg/dL Magnesium (1.7-2.3) mg/dL Total Bilirubin (0.2-1.0) mg/dL AST (10-42) IU/L ALT (10-60) IU/L Alkaline Phosphatase (42-121) IU/L Total Protein (6.4-8.9) g/dL Albumin (3.2-5.5) g/dL Globulin (2.1-4.2) g/dL Albumin/Globulin Ratio (1.0-2.2) Lipase (11-82) U/L Urine Color Urine Clarity (CLEAR) Urine pH (5.0-7.5) PH Ur Specific Whiteface (1.002-1.030) Urine Protein (NEGATIVE) mg/dL Urine Glucose (UA) (NEGATIVE) mg/dL Urine Ketones (NEGATIVE) mg/dL Urine Occult Blood (NEGATIVE) Urine Nitrite (NEGATIVE) Urine Bilirubin (NEGATIVE) Urine Urobilinogen (NORMAL) E.U./dL Ur Leukocyte Esterase (NEGATIVE) Ur Microscopic Review Urine Culture Comments Urine Sodium mmol/L Nasal Adenovirus (PCR) NOT DETECTED Nasal B. parapertussis DNA (PCR) NOT DETECTED Nasal Coronavir 229E PCR NOT DETECTED Nasal Coronavir HKU1 PCR NOT DETECTED Nasal Coronavir NL63 PCR NOT DETECTED Nasal Coronavir OC43 PCR NOT DETECTED Nasal Enterovir/Rhinovir PCR NOT DETECTED Nasal Influenza B PCR NOT DETECTED Nasal Influenza A PCR NOT DETECTED Nasal Parainfluen 1 PCR NOT DETECTED Nasal Parainfluen 2 PCR NOT DETECTED Nasal Parainfluen 3 PCR NOT DETECTED Nasal Parainfluen 4 PCR NOT DETECTED Nasal RSV (PCR) NOT DETECTED Nasal Screen MRSA (PCR) (NEGATIVE) Nasal B.pertussis DNA PCR NOT DETECTED Nasal C.pneumoniae (PCR) NOT DETECTED Brian Human Metapneumo PCR NOT DETECTED Nasal M.pneumoniae (PCR) NOT DETECTED Nasal SARS-CoV-2 (PCR) NOT DETECTED Diagnostic Imaging Diagnostic Imaging Results: positive Final report reviewed Assessment/Plan Problem List (1) Acute hyponatremia: Impression: Patient presents with severe hyponatremia of 107. She endorses some decreased p.o. intake. Urine sodium was 50, but this was collected after IV fluids were administered, which decreases its utility. Serum osmolality, urine osmolality are also ordered, remain pending. Will start patient on 3% hypertonic saline at a rate of 15 cc/h, as well as DDAVP 1 mcg every 8 hours to prevent rapid overcorrection. Goal is 6 mill equivalents over 24 hours; patient is now 113, appropriately. Goal of 122 by tomorrow afternoon. Will continue to trend BMPs every 4 hours until sodium is greater than 125. (2) Hx of peptic ulcer: Impression: Continue Protonix, Carafate. (3) HTN (hypertension): Impression: Resume patient's home metoprolol and lisinopril. Hold hydrochlorothiazide indefinitely. Qualifiers: Hypertension type: primary hypertension Qualified Code(s): I10 - Essential (primary) hypertension (4) Weight loss, non-intentional: Impression: Attributed to poor self care after loss of her . Spoke about mirtazapine which will help with her depressed mood, as well as appetite stimulation. Patient is agreeable to start. Will start mirtazapine 15 mg tonight.
[2024-11-11 09:32] LABS: CALCIUM 8.6 mg/dL (8.5-10.3); CREATININE 0.4 mg/dL (0.6-1.3); POTASSIUM 3.4 mmol/L (3.5-4.5)
[2024-11-11] MEDS: SUCRALFATE 1 GM/10 ML UDC PO SCH (10:55)
[2024-11-11 13:24] LABS: CALCIUM 8.6 mg/dL (8.5-10.3); CREATININE 0.4 mg/dL (0.6-1.3); POTASSIUM 3.8 mmol/L (3.5-4.5)
[2024-11-11 17:10] LABS: MAGNESIUM 1.8 mg/dL (1.7-2.3)
[2024-11-11 17:15] LABS: PHOSPHORUS 1.7 mg/dL (2.5-5.0)
[2024-11-11 17:20] LABS: CALCIUM 8.5 mg/dL (8.5-10.3); CREATININE 0.4 mg/dL (0.6-1.3)
[2024-11-11] MEDS: NEUTRA-PHOS 250 MG TABLET PO SCH (18:28)
[2024-11-11] MEDS: MAGNESIUM SULFATE 2 GRAM 2 GM/50 ML BAG IV SCH (18:28)
[2024-11-11] MEDS ORDERED: TPN (CLINIMIX E 5/15) 2,000 ML with MULTIVITAMIN 10 ML, TRACE ELEMENTS 1 ML, SODIUM CHL... IV SCH (19:00)
[2024-11-11] MEDS: MIRTAZAPINE 15 MG TABLET PO SCH (21:37)
[2024-11-11] MEDS: SODIUM CHLORIDE 3% HYPERTONIC 100 ML IV SCH (21:40)
[2024-11-11] MEDS: traZODone 50 MG TABLET PO SCH (21:49)
[2024-11-11 21:54] LABS: CALCIUM 8.2 mg/dL (8.5-10.3); CREATININE 0.4 mg/dL (0.6-1.3); POTASSIUM 3.5 mmol/L (3.5-4.5)
[2024-11-12 01:56] LABS: CALCIUM 8.2 mg/dL (8.5-10.3); CREATININE 0.4 mg/dL (0.6-1.3); POTASSIUM 3.1 mmol/L (3.5-4.5)
[2024-11-12 05:08] LABS: HCT - HEMATOCRIT 37.1 % (37.0-47.0); HGB - HEMOGLOBIN 13.2 g/dL (12.0-16.0); MEAN CORPUSCULAR HEMOGLOBIN 30.4 pg (27.0-31.0); MEAN CORPUSCULAR HGB CONC 35.6 g/dL (32.0-36.0); MEAN CORPUSCULAR VOLUME 85.5 fL (81.0-99.0); MEAN PLATELET VOLUME 8.2 fL (7.9-10.8); RED BLOOD COUNT 4.34 10^6/uL (4.20-5.40); RED CELL DISTRIBUTION WIDTH 11.6 % (12.0-15.0); WHITE BLOOD COUNT 7.1 x10^3/uL (4.8-10.8)
[2024-11-12 05:22] LABS: CALCIUM 7.9 mg/dL (8.5-10.3); CREATININE 0.4 mg/dL (0.6-1.3); MAGNESIUM 2.5 mg/dL (1.7-2.3); POTASSIUM 3.1 mmol/L (3.5-4.5)
[2024-11-12 05:45] LABS: CALCIUM, IONIZED 1.08 mmol/L (1.09-1.30); VBG PH 7.474 (7.31-7.41)
[2024-11-12] MEDS: NEUTRA-PHOS 250 MG TABLET PO SCH (06:14)
[2024-11-12] MEDS: CALCIUM CARBONATE CHEW 500 MG TABLET PO SCH (06:15)
[2024-11-12] MEDS: MULTIVITAMIN W/MINERALS TABLET PO SCH (08:17)
[2024-11-12 10:29] LABS: CALCIUM 8.3 mg/dL (8.5-10.3); CREATININE 0.5 mg/dL (0.6-1.3); PHOSPHORUS 2.3 mg/dL (2.5-5.0); POTASSIUM 2.9 mmol/L (3.5-4.5)
[2024-11-12] MEDS ORDERED: POTASSIUM PHOSPHATE 15 MMOL in SODIUM CHLORIDE 0.9% 250 ML IV ONE (10:33)
[2024-11-12] MEDS: POTASSIUM CHLOR 10 MEQ/100 ML 10 MEQ/100 ML BAG IV SCH (11:18)
[2024-11-12] MEDS: SODIUM PHOSPHATE 15 MMOL in SODIUM CHLORIDE 0.9% 250 ML IV ONE (11:18)
--- NOTE | 2024-11-12 11:56 | PT Plan of Care ---
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 Admitted with hyponatremia and fatigue. Pt lives alone in multistory home, sister visits every so often with food and pt is ambulatory with a FWW. Per pt and family report, pt has been gradually declining in functional activity over last several months. Upon PT eval, pt is CGA for bed mobility and supine to sit transfer, minAx1 for STS and minAx1 with close chair follow for short distance ambulation in room using FWW. Pt is moderate fall risk given BLE weakness, LOB during turns and need for AD during amb. Pt may benefit from skilled PT in acute setting to address above impairments and improve functional indep. When medically clear, PT rec dc to SNF as pt is below baseline and at an increased fall risk. GOALS Improve supine to sit to:: Modified Independent Improve sit to stand to:: Modified Independent Improve pivot transfer ability to:: Contact Guard Improve sit to supine to:: Contact Guard Improve gait ability to:: CGA Advance Assistive Device to:: Front Wheeled Walker Increase distance walked to (in feet):: 50 PLAN Frequency: 1-2x/day Duration: Until goals are met DISCHARGE RECOMMENDATIONS Discharge Location: Longterm Facility DC Equipment Recommended: Front wheeled walker Transport Needs at Discharge: [facility] van vs POV ([facility] van vs POV)
--- NOTE | 2024-11-12 12:35 | OT Plan of Care ---
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 Work up revealing hyponatremia of 107 and hypokalemia 3.1. Adm to ICU for management and observation with hypertonic saline, as well as DDAVP to correct for osmotic diuresis and rapid correction. Labs stable this am and pt cleared for therapy evaluation. VSS on RA. Denied pain and dizziness. Met supine in bed, A&Ox4, willing to participate with therapy. Performed supine to sit, sit to stand, and ambulation 15 ft to/ from bathroom using RW MIN A - Unsteady requiring cues for safety and RW management. Currently MIN A ADLs with full set up and increased time. Overall presents with decreased endurance, activity tolerance and ADL status. Will benefit from cont OT services during acute stay. Rec d/c to SNF vs home to [facility] with increased care pending progress towards baseline . Goals - Activities of Daily Living Improve Upper Extremity Modified Independent Dressing to: Improve Grooming/Hygiene to: Modified Independent Improve Bathing to: Modified Independent Improve Toileting to: Modified Independent Plan Treatment Frequency 1x/day -Discharge Recommendations Discharge Location [facility] Facility Transport Needs at Discharge wc van vs POV (wc van vs POV)
--- NOTE | 2024-11-12 13:10 | PROVIDER PROGRESS NOTE ---
Subjective Subjective Subjective: Patient continues to feel better. She states her appetite is slowly returning. She got some sleep last night with the trazodone. She denies any fevers or chills or nausea. She is eager to work with physical therapy today and get out of bed. Current Medications Current Medications Current Medications: Current Medications Generic Name Dose Route Start Last Admin Trade Name Freq PRN Reason Stop Dose Admin Acetaminophen 325 mg 11/11/24 08:40 Acetaminophen 325 Mg Tablet PO Q4H PRN fever or pain Albuterol/Ipratropium 3 ml 11/10/24 16:52 11/11/24 10:25 Ipratropium/Albuterol 3 Ml Neb INH 3 ml RTQID PRN Administration Shortness of Air/Wheezing Alcohol 1 amp 11/10/24 21:00 11/12/24 08:18 Ethyl Alcohol 62% Swab Ampule BRIAN 1 amp BID ROGELIO Administration Atorvastatin Calcium 10 mg 11/11/24 09:00 11/12/24 08:18 Atorvastatin 10 Mg Tablet PO 10 mg DAILY ROGELIO Administration Potassium Chloride 10 meq in 100 mls @ 100 mls/hr 11/12/24 11:00 11/12/24 12:39 Potassium Chloride IV 11/12/24 14:59 100 mls/hr Q1H ROGELIO Administration Protocol Sodium Phosphate 15 mmol/ 255 mls @ 63 mls/hr 11/12/24 11:00 11/12/24 11:18 Sodium Chloride IV 11/12/24 15:02 63 mls/hr ONCE ONE Administration Lisinopril 20 mg 11/11/24 09:00 11/12/24 08:18 Lisinopril 20 Mg Tablet PO 20 mg DAILY ROGELIO Administration Melatonin 3 mg 11/10/24 21:00 11/11/24 21:37 Melatonin 3 Mg Tablet PO 3 mg QPM ROGELIO Administration Metoprolol Succinate 50 mg 11/11/24 09:00 11/12/24 08:18 Metoprolol Succinate 50 Mg Tablet PO 50 mg DAILY ROGELIO Administration Mirtazapine 15 mg 11/11/24 21:00 11/11/24 21:37 Mirtazapine 15 Mg Tablet PO 15 mg QPM ROGELIO Administration Multivitamins/Minerals 1 tab 11/12/24 08:00 11/12/24 08:17 Multivitamin W/Minerals Tablet PO 1 tab DAILYWM ROGELIO Administration Ondansetron HCl 4 mg 11/10/24 19:54 Ondansetron 4 Mg/2 Ml Vial IVP Q6HR PRN Nausea / Vomiting Ondansetron HCl 4 mg 11/10/24 19:54 Ondansetron Odt 4 Mg Tablet TL Q6HR PRN Nausea / Vomiting Pantoprazole Sodium 40 mg 11/10/24 16:00 11/12/24 06:14 Pantoprazole 40 Mg Tablet PO 40 mg BIDAC ROGELIO Administration Polyethylene Glycol 17 gm 11/11/24 09:00 11/12/24 08:18 Polyethylene Glycol 3350 17 Gm Packet PO 17 gm DAILY ROGELIO Administration Sodium Chloride 10 ml 11/10/24 17:00 11/12/24 08:19 Sodium Chloride Flush 0.9% 10 Ml Syringe IVP 10 ml 0100,0900,1700 ROGELIO Administration Sodium Chloride 10 ml 11/10/24 15:29 Sodium Chloride Flush 0.9% 10 Ml Syringe IVP PRN PRN NEEDED PER PROVIDER ORDERS Sucralfate 1 gm 11/11/24 11:00 11/12/24 11:20 Sucralfate 1 Gm/10 Ml Udc PO 1 gm 0700,1100,1600,2200 ROGELIO Administration Trazodone HCl 50 mg 11/11/24 21:00 11/11/24 21:49 Trazodone 50 Mg Tablet PO Not Given QPM ROGELIO Objective Vital Signs/Intake & Output Reviewed Vital Signs: Yes Vital Signs: Vital Signs x48h Temp Pulse Resp BP Pulse Ox 11/12/24 12:00 209.8 F H 103 H 25 H 139/88 H 94 11/12/24 11:00 100 24 143/88 H 95 11/12/24 10:00 92 22 153/90 H 97 11/12/24 10:00 102 H 22 153/90 H 97 11/12/24 09:00 97 18 137/90 H 95 11/12/24 08:15 98.0 F 11/12/24 08:00 94 20 141/82 H 97 11/12/24 07:00 93 16 127/77 98 11/12/24 06:00 97.5 F L 95 20 114/53 L 93 Intake & Output: Intake & Output 11/09/24 11/10/24 11/11/24 11/12/24 23:59 23:59 23:59 23:59 Intake Total 1607 / 1607 1376 / 1376 820 / 820 Output Total 75 / 75 820 / 820 1150 / 1150 Balance 1532 / 1532 556 / 556 -330 / -330 Weight (kg) 41 kg 41.5 kg 41.5 kg Objective General Appearance: positive No acute distress and Alert; negative Anxious Eyes Bilateral: positive Normal inspection, PERRL and EOMI ENT: positive ENT inspection nml, Pharynx nml and No signs of dehydration Neck: positive Nml inspection, Thyroid nml and No JVD Respiratory: positive Chest non-tender, No respiratory distress and Breath sounds nml; negative Wheezes, Rales or Rhonchi Cardiovascular: positive No murmur and Tachycardia; negative Systolic murmur, Diastolic murmur or Crepitus Abdomen: positive Non-tender and No distention; negative Guarding, Rebound, Hepatomegaly, Splenomegaly or Mass Back: positive Nml inspection; negative CVA tenderness (R) or CVA tenderness (L) Skin: positive Color nml, No rash, Warm and Dry Extremities: positive Non-tender, Full ROM and No pedal edema Neurologic/Psychiatric: positive Oriented x3, Motor nml and Mood/affect nml Lab Results 11/12/24 04:55 11/12/24 13:39 Other Labs: Lab Results x24hrs 11/12/24 11/12/24 11/12/24 Range/Units 10:08 04:55 01:30 WBC 7.1 (4.8-10.8) x10^3/uL RBC 4.34 (4.20-5.40) 10^6/uL Hgb 13.2 (12.0-16.0) g/dL Hct 37.1 (37.0-47.0) % MCV 85.5 (81.0-99.0) fL MCH 30.4 (27.0-31.0) pg MCHC 35.6 (32.0-36.0) g/dL RDW 11.6 L (12.0-15.0) % Plt Count 275 (130-450) 10^3/uL MPV 8.2 (7.9-10.8) fL VBG pH 7.474 H (7.31-7.41) Ionized Calcium 1.08 L (1.09-1.30) mmol/L Sodium 125 L 122 L 120 L* (135-145) mmol/L Potassium 2.9 L 3.1 L 3.1 L (3.5-4.5) mmol/L Chloride 88 L 88 L 85 L (101-111) mmol/L Carbon Dioxide 28 27 29 (21-32) mmol/L Anion Gap 9.0 7.0 6.0 (6-13) BUN 7 7 7 (6-20) mg/dL Creatinine 0.5 L 0.4 L 0.4 L (0.6-1.3) mg/dL Estimated GFR (MDRD) 119 154 154 (>89) Glucose 119 H 98 105 H (74-104) mg/dL Serum Osmolality (280-301) mOsmol/kg Calcium 8.3 L 7.9 L 8.2 L (8.5-10.3) mg/dL Phosphorus 2.3 L 2.2 L (2.5-5.0) mg/dL Magnesium 2.5 H (1.7-2.3) mg/dL Urine Osmolality (.) mOsmol/kg 11/11/24 11/11/24 11/11/24 Range/Units 23:29 21:22 16:57 WBC (4.8-10.8) x10^3/uL RBC (4.20-5.40) 10^6/uL Hgb (12.0-16.0) g/dL Hct (37.0-47.0) % MCV (81.0-99.0) fL MCH (27.0-31.0) pg MCHC (32.0-36.0) g/dL RDW (12.0-15.0) % Plt Count (130-450) 10^3/uL MPV (7.9-10.8) fL VBG pH (7.31-7.41) Ionized Calcium (1.09-1.30) mmol/L Sodium 116 L* 116 L* (135-145) mmol/L Potassium 3.5 4.0 (3.5-4.5) mmol/L Chloride 83 L 84 L (101-111) mmol/L Carbon Dioxide 25 26 (21-32) mmol/L Anion Gap 8.0 6.0 (6-13) BUN 8 9 (6-20) mg/dL Creatinine 0.4 L 0.4 L (0.6-1.3) mg/dL Estimated GFR (MDRD) 154 154 (>89) Glucose 131 H 121 H (74-104) mg/dL Serum Osmolality (280-301) mOsmol/kg Calcium 8.2 L 8.5 (8.5-10.3) mg/dL Phosphorus 1.7 L (2.5-5.0) mg/dL Magnesium 2.8 H 1.8 (1.7-2.3) mg/dL Urine Osmolality (.) mOsmol/kg 11/11/24 11/10/24 11/10/24 Range/Units 12:55 12:42 11:20 WBC (4.8-10.8) x10^3/uL RBC (4.20-5.40) 10^6/uL Hgb (12.0-16.0) g/dL Hct (37.0-47.0) % MCV (81.0-99.0) fL MCH (27.0-31.0) pg MCHC (32.0-36.0) g/dL RDW (12.0-15.0) % Plt Count (130-450) 10^3/uL MPV (7.9-10.8) fL VBG pH (7.31-7.41) Ionized Calcium (1.09-1.30) mmol/L Sodium 114 L* (135-145) mmol/L Potassium 3.8 (3.5-4.5) mmol/L Chloride 82 L (101-111) mmol/L Carbon Dioxide 26 (21-32) mmol/L Anion Gap 6.0 (6-13) BUN 8 (6-20) mg/dL Creatinine 0.4 L (0.6-1.3) mg/dL Estimated GFR (MDRD) 154 (>89) Glucose 155 H (74-104) mg/dL Serum Osmolality 225 L (280-301) mOsmol/kg Calcium 8.6 (8.5-10.3) mg/dL Phosphorus (2.5-5.0) mg/dL Magnesium (1.7-2.3) mg/dL Urine Osmolality 286 (.) mOsmol/kg Diagnostic Imaging Diagnostic Imaging Results: positive Final report reviewed Assessment/Plan Problem List (1) Acute hyponatremia: Impression: Patient presents with severe hyponatremia of 107. She endorses some decreased p.o. intake. Urine sodium was 50, but this was collected after IV fluids were administered, which decreases its utility. She was started on 3% hypertonic saline at a rate of 15 cc/h, as well as DDAVP 1 mcg every 8 hours to prevent rapid overcorrection. Goal is 6 mill equivalents over 24 hours; patient is now appropriately 122 after 48 hours. Will start 0.9 NS with goal correction to 130 by tomorrow. Will continue to trend BMPs every 4 hours. (2) Hx of peptic ulcer: Impression: Continue Protonix, Carafate. (3) HTN (hypertension): Impression: Resume patient's home metoprolol and lisinopril. Hold hydrochlorothiazide indefinitely. Qualifiers: Hypertension type: primary hypertension Qualified Code(s): I10 - Essential (primary) hypertension (4) Weight loss, non-intentional: Impression: Attributed to poor self care after loss of her . Spoke about mirtazapine which will help with her depressed mood, as well as appetite stimulation. Patient is agreeable to start. Will continue mirtazapine 15 mg tonight.
[2024-11-12 14:06] LABS: CALCIUM 8.1 mg/dL (8.5-10.3); CREATININE 0.4 mg/dL (0.6-1.3); POTASSIUM 3.6 mmol/L (3.5-4.5)
[2024-11-12 14:09] LABS: CALCIUM, IONIZED 1.07 mmol/L (1.09-1.30); VBG PH 7.471 (7.31-7.41)
[2024-11-12] MEDS: CALCIUM GLUC 1,000MG/50ML-NACL 1,000 MG/50 ML BAG IV ONE (14:23)
[2024-11-12] MEDS: SODIUM CHLORIDE 0.9% 1,000 ML IV SCH (14:23)
[2024-11-12 17:36] LABS: CALCIUM 8.6 mg/dL (8.5-10.3); CREATININE 0.4 mg/dL (0.6-1.3); POTASSIUM 3.6 mmol/L (3.5-4.5)
[2024-11-12] MEDS: BUDESONIDE 0.5 MG/2 ML NEB INH SCH (19:03)
[2024-11-12] MEDS: POTASSIUM CHLORIDE 20 MEQ/15 ML UDC PO ONE (19:28)
[2024-11-12 21:51] LABS: CALCIUM 8.6 mg/dL (8.5-10.3); CREATININE 0.5 mg/dL (0.6-1.3); POTASSIUM 4.5 mmol/L (3.5-4.5)
[2024-11-13 04:51] LABS: HCT - HEMATOCRIT 38.4 % (37.0-47.0); MEAN CORPUSCULAR HEMOGLOBIN 30.4 pg (27.0-31.0); MEAN CORPUSCULAR HGB CONC 33.9 g/dL (32.0-36.0); MEAN CORPUSCULAR VOLUME 89.7 fL (81.0-99.0); MEAN PLATELET VOLUME 8.2 fL (7.9-10.8); RED BLOOD COUNT 4.28 10^6/uL (4.20-5.40); RED CELL DISTRIBUTION WIDTH 11.9 % (12.0-15.0); WHITE BLOOD COUNT 6.3 x10^3/uL (4.8-10.8)
[2024-11-13 05:10] LABS: CALCIUM 8.2 mg/dL (8.5-10.3); CREATININE 0.4 mg/dL (0.6-1.3); MAGNESIUM 1.7 mg/dL (1.7-2.3); PHOSPHORUS 2.1 mg/dL (2.5-5.0)
--- NOTE | 2024-11-13 13:03 | PROVIDER PROGRESS NOTE ---
Subjective Subjective Subjective: Patient continues to feel better. She states her appetite is slowly returning. She got some sleep last night with the trazodone. She denies any fevers or chills or nausea. She is eager to work with physical therapy today and get out of bed. Patient will likely be medically cleared tomorrow (hoping for sodium around 130). Information has been sent to [facility]; hoping for discharge to them tomorrow. Current Medications Current Medications Current Medications: Current Medications Generic Name Dose Route Start Last Admin Trade Name Freq PRN Reason Stop Dose Admin Acetaminophen 325 mg 11/11/24 08:40 Acetaminophen 325 Mg Tablet PO Q4H PRN fever or pain Albuterol/Ipratropium 3 ml 11/10/24 16:52 11/12/24 15:34 Ipratropium/Albuterol 3 Ml Neb INH 3 ml RTQID PRN Administration Shortness of Air/Wheezing Alcohol 1 amp 11/10/24 21:00 11/13/24 08:41 Ethyl Alcohol 62% Swab Ampule BRIAN 1 amp BID ROGELIO Administration Atorvastatin Calcium 10 mg 11/11/24 09:00 11/13/24 08:40 Atorvastatin 10 Mg Tablet PO 10 mg DAILY ROGELIO Administration Budesonide 0.5 mg 11/12/24 19:00 11/13/24 09:12 Budesonide 0.5 Mg/2 Ml Neb INH Not Given RTBID ROGELIO Sodium Chloride 1,000 mls @ 75 mls/hr 11/12/24 15:00 11/13/24 04:45 Normal Saline 0.9% IV 75 mls/hr .[id number] ROGELIO Administration Lisinopril 20 mg 11/11/24 09:00 11/13/24 08:40 Lisinopril 20 Mg Tablet PO 20 mg DAILY ROGELIO Administration Melatonin 3 mg 11/10/24 21:00 11/12/24 21:12 Melatonin 3 Mg Tablet PO 3 mg QPM ROGELIO Administration Metoprolol Succinate 50 mg 11/11/24 09:00 11/13/24 08:40 Metoprolol Succinate 50 Mg Tablet PO 50 mg DAILY ROGELIO Administration Mirtazapine 15 mg 11/11/24 21:00 11/12/24 21:12 Mirtazapine 15 Mg Tablet PO 15 mg QPM ROGELIO Administration Multivitamins/Minerals 1 tab 11/12/24 08:00 11/13/24 08:40 Multivitamin W/Minerals Tablet PO 1 tab DAILYWM ROGELIO Administration Ondansetron HCl 4 mg 11/10/24 19:54 Ondansetron 4 Mg/2 Ml Vial IVP Q6HR PRN Nausea / Vomiting Ondansetron HCl 4 mg 11/10/24 19:54 Ondansetron Odt 4 Mg Tablet TL Q6HR PRN Nausea / Vomiting Pantoprazole Sodium 40 mg 11/10/24 16:00 11/13/24 06:51 Pantoprazole 40 Mg Tablet PO 40 mg BIDAC ROGELIO Administration Polyethylene Glycol 17 gm 11/11/24 09:00 11/13/24 08:41 Polyethylene Glycol 3350 17 Gm Packet PO 17 gm DAILY ROGELIO Administration Sodium Chloride 10 ml 11/10/24 17:00 11/13/24 08:41 Sodium Chloride Flush 0.9% 10 Ml Syringe IVP 10 ml 0100,0900,1700 ROGELIO Administration Sodium Chloride 10 ml 11/10/24 15:29 Sodium Chloride Flush 0.9% 10 Ml Syringe IVP PRN PRN NEEDED PER PROVIDER ORDERS Sucralfate 1 gm 11/11/24 11:00 11/13/24 06:51 Sucralfate 1 Gm/10 Ml Udc PO 1 gm 0700,1100,1600,2200 ROGELIO Administration Trazodone HCl 50 mg 11/11/24 21:00 11/12/24 21:13 Trazodone 50 Mg Tablet PO 50 mg QPM ROGELIO Administration Objective Vital Signs/Intake & Output Reviewed Vital Signs: Yes Vital Signs: Vital Signs x48h Temp Pulse Resp BP Pulse Ox 11/13/24 08:14 98.3 F 109 H 18 155/94 H 95 11/13/24 06:00 98.2 F 104 H 18 168/86 H 96 Intake & Output: Intake & Output 11/10/24 11/11/24 11/12/24 11/13/24 23:59 23:59 23:59 23:59 Intake Total 1607 / 1607 1376 / 1376 1737 / 1737 1120 / 1120 Output Total 75 / 75 820 / 820 1750 / 1750 Balance 1532 / 1532 556 / 556 -13 / -13 1120 / 1120 Weight (kg) 41 kg 41.5 kg 41.5 kg 41.5 kg Objective General Appearance: positive No acute distress and Alert; negative Anxious Eyes Bilateral: positive Normal inspection, PERRL and EOMI ENT: positive ENT inspection nml, Pharynx nml and No signs of dehydration Neck: positive Nml inspection, Thyroid nml and No JVD Respiratory: positive Chest non-tender, No respiratory distress and Breath sounds nml; negative Wheezes, Rales or Rhonchi Cardiovascular: positive No murmur and Tachycardia; negative Systolic murmur, Diastolic murmur or Crepitus Abdomen: positive Non-tender and No distention; negative Guarding, Rebound, Hepatomegaly, Splenomegaly or Mass Back: positive Nml inspection; negative CVA tenderness (R) or CVA tenderness (L) Skin: positive Color nml, No rash, Warm and Dry Extremities: positive Non-tender, Full ROM and No pedal edema Neurologic/Psychiatric: positive Oriented x3, Motor nml and Mood/affect nml Lab Results 11/13/24 04:27 11/13/24 04:27 Other Labs: Lab Results x24hrs 11/13/24 11/12/24 11/12/24 Range/Units 04:27 21:13 17:01 WBC 6.3 (4.8-10.8) x10^3/uL RBC 4.28 (4.20-5.40) 10^6/uL Hgb 13.0 (12.0-16.0) g/dL Hct 38.4 (37.0-47.0) % MCV 89.7 (81.0-99.0) fL MCH 30.4 (27.0-31.0) pg MCHC 33.9 (32.0-36.0) g/dL RDW 11.9 L (12.0-15.0) % Plt Count 235 (130-450) 10^3/uL MPV 8.2 (7.9-10.8) fL VBG pH (7.31-7.41) Ionized Calcium (1.09-1.30) mmol/L Sodium 124 L 123 L 121 L (135-145) mmol/L Potassium 4.0 4.5 3.6 (3.5-4.5) mmol/L Chloride 92 L 90 L 88 L (101-111) mmol/L Carbon Dioxide 26 26 25 (21-32) mmol/L Anion Gap 6.0 7.0 8.0 (6-13) BUN 7 10 10 (6-20) mg/dL Creatinine 0.4 L 0.5 L 0.4 L (0.6-1.3) mg/dL Estimated GFR (MDRD) 154 119 154 (>89) Glucose 111 H 152 H 132 H (74-104) mg/dL Calcium 8.2 L 8.6 8.6 (8.5-10.3) mg/dL Phosphorus 2.1 L (2.5-5.0) mg/dL Magnesium 1.7 (1.7-2.3) mg/dL 11/12/24 Range/Units 13:39 WBC (4.8-10.8) x10^3/uL RBC (4.20-5.40) 10^6/uL Hgb (12.0-16.0) g/dL Hct (37.0-47.0) % MCV (81.0-99.0) fL MCH (27.0-31.0) pg MCHC (32.0-36.0) g/dL RDW (12.0-15.0) % Plt Count (130-450) 10^3/uL MPV (7.9-10.8) fL VBG pH 7.471 H (7.31-7.41) Ionized Calcium 1.07 L (1.09-1.30) mmol/L Sodium 122 L (135-145) mmol/L Potassium 3.6 (3.5-4.5) mmol/L Chloride 88 L (101-111) mmol/L Carbon Dioxide 27 (21-32) mmol/L Anion Gap 7.0 (6-13) BUN 9 (6-20) mg/dL Creatinine 0.4 L (0.6-1.3) mg/dL Estimated GFR (MDRD) 154 (>89) Glucose 146 H (74-104) mg/dL Calcium 8.1 L (8.5-10.3) mg/dL Phosphorus (2.5-5.0) mg/dL Magnesium (1.7-2.3) mg/dL Diagnostic Imaging Diagnostic Imaging Results: positive Final report reviewed Assessment/Plan Problem List (1) Acute hyponatremia: Impression: Patient presents with severe hyponatremia of 107. She endorses some decreased p.o. intake. Urine sodium was 50, but this was collected after IV fluids were administered, which decreases its utility. She was started on 3% hypertonic saline at a rate of 15 cc/h, as well as DDAVP 1 mcg every 8 hours to prevent rapid overcorrection. Goal is 6 mill equivalents over 24 hours; patient is now appropriately 124. Will continue 0.9 NS with goal correction to 130 by tomorrow. Will continue to trend BMPs every 8 hours. (2) Hx of peptic ulcer: Impression: Continue Protonix, Carafate. (3) HTN (hypertension): Impression: Resume patient's home metoprolol and lisinopril. Hold hydrochlorothiazide indefinitely. Qualifiers: Hypertension type: primary hypertension Qualified Code(s): I10 - Essential (primary) hypertension (4) Weight loss, non-intentional: Impression: Attributed to poor self care after loss of her . Spoke about mirtazapine which will help with her depressed mood, as well as appetite stimulation. Patient is agreeable to start. Will continue mirtazapine 15 mg tonight.
[2024-11-13 14:26] LABS: CALCIUM 8.3 mg/dL (8.5-10.3); CREATININE 0.4 mg/dL (0.6-1.3); POTASSIUM 3.7 mmol/L (3.5-4.5)
[2024-11-13] MEDS ORDERED: SODIUM CHLORIDE 3% HYPERTONIC 0 ML IV SCH (15:00)
[2024-11-13] MEDS: SODIUM CHLORIDE 3% HYPERTONIC 500 ML IV SCH (16:24)
[2024-11-13 17:28] LABS: CALCIUM 8.7 mg/dL (8.5-10.3); CREATININE 0.4 mg/dL (0.6-1.3); POTASSIUM 3.8 mmol/L (3.5-4.5)
[2024-11-13 21:50] LABS: CALCIUM 8.6 mg/dL (8.5-10.3); CREATININE 0.5 mg/dL (0.6-1.3); POTASSIUM 3.8 mmol/L (3.5-4.5)
[2024-11-14 01:23] LABS: CALCIUM 8.4 mg/dL (8.5-10.3); CREATININE 0.4 mg/dL (0.6-1.3); POTASSIUM 3.9 mmol/L (3.5-4.5)
[2024-11-14 04:36] LABS: HCT - HEMATOCRIT 36.6 % (37.0-47.0); HGB - HEMOGLOBIN 12.5 g/dL (12.0-16.0); MEAN CORPUSCULAR HEMOGLOBIN 30.1 pg (27.0-31.0); MEAN CORPUSCULAR HGB CONC 34.2 g/dL (32.0-36.0); MEAN CORPUSCULAR VOLUME 88.2 fL (81.0-99.0); MEAN PLATELET VOLUME 8.2 fL (7.9-10.8); RED BLOOD COUNT 4.15 10^6/uL (4.20-5.40)
[2024-11-14 04:49] LABS: MAGNESIUM 1.7 mg/dL (1.7-2.3)
[2024-11-14 04:54] LABS: CALCIUM 8.5 mg/dL (8.5-10.3); CREATININE 0.4 mg/dL (0.6-1.3)
[2024-11-14 06:18] VITALS: O2SAT 94
[2024-11-14 08:11] VITALS: BP 133/61; TEMP 98.2
[2024-11-14 08:18] LABS: CALCIUM 8.7 mg/dL (8.5-10.3); CREATININE 0.4 mg/dL (0.6-1.3); POTASSIUM 3.8 mmol/L (3.5-4.5)
[2024-11-14 12:08] LABS: CALCIUM 8.8 mg/dL (8.5-10.3); CREATININE 0.5 mg/dL (0.6-1.3); POTASSIUM 3.7 mmol/L (3.5-4.5)
--- NOTE | 2024-11-14 12:29 | Discharge Summary ---
"Discharge Summary Admit Date: 11/10/24 Discharge Date: 11/14/24 Discharging Provider: Nely Camacho MD Primary Care Provider: JACQUE Young Code Status: Attempt Resuscitation Discharge Facility Name: [facility] DIAGNOSES Discharge Diagnoses with Status of Each Condition: 1. Acute hyponatremia 2. Weight loss, unintentional 3. Cognitive deficits 4. History of peptic ulcer disease and melena in July 2024 5. Hypertension 6. Adjustment disorder, grief HPI History of Present Illness: 79-year-old female with a history of hypertension on hydrochlorothiazide, peptic ulcer disease presented for worsening fatigue. She was admitted in July of last year for melena, weight loss, severe grief reaction. She has a history of peptic ulcer disease while living in [place] and had to be hospitalized for melena back then. EGD was done several times to her recollection. Her in July 2022 and she continued to live in [place]. [place] in [place] where she was down to 84 pounds. Her sisters cast to gated her, nags her, and she was found to get up to 90 pounds. She has COPD but does not require oxygen. When she was discharged in July for melena due to presumed peptic ulcer disease from nonsteroidal therapy, she was instructed to establish herrself with a PCP, get referred to surgery for an EGD and colonoscopy. She has not followed through with that for unclear reasons. Daughter describes mom as forgetful. Not taking care of herself. And the patient's sisters are overwhelmed and cannot get her to comply. Daughter has tried to get her to move to [place]. Daughter even came here to pick her up and take her but mom refused. With this ER encounter, she states that for the last week, she has had a decreased appetite. She states that she began drinking two 20 ounce cups of water. However, she is not eating much. She denies any nausea or vomiting. She has had no diarrhea. In fact, she usually is constipated. Her sister dropped the fluid for her. She is able to make protein shakes on her home. However, for the past week, she has been so weak, she has been not able to get out of bed to eat. She states she just does not feel like eating. She lives on her own, and her sister drops by every few days to help feed her, and take care of her. Her daughter still lives in [place], would still like her mother to move with her, but the patient is insistent on staying in the home she has been in for 40 years. She lost her 2 years ago, and struggling with depression, which she thinks is contributing to her low appetite. Daughter does have DPOA and POA. She has not invoked POA. In the ER, patient was vitally stable. Her blood pressure was elevated at 160/86, heart rate was in the low 100s, she was afebrile, saturating 95% on room air. Lab work showed no leukocytosis. Her hemoglobin is stable now at 14.4. Her sodium was 107 on admission. Potassium was also low at 3.1. Her creatinine is within normal limits at 0.4, and her Leukos was elevated at 157. She was started on hypertonic saline, as well as DDAVP to correct for osmotic diuresis and rapid correction. CONSULTS | PROCEDURES Procedures: Chest x-ray does not have acute cardiopulmonary process. Head CT has no acute intracranial pathology HOSPITAL COURSE Hospital Course: The patient was placed on hypertonic saline drip of 15 cc/h. Her sodium has gradually increased slowly, gradually as we wanted to. This morning she was 127. And 4 hours later 126. The patient is alert, oriented to person, place, time but not completely understanding situation. She keeps insisting that she can live at home by herself even though she that clearly failed that since going from [place] to here. She keeps insisting that she does not want to leave the [facility] and live in [place]. She is reluctantly agreeing to hire caregivers once she is discharged from the SNF so that she can remain in her own home. She insists that she has the finances that would allow her to do that. We addressed her nutrition status with nutrition consults. She is on a protein supplement with each meal 3 times a day. She is going to be discharged on salt tablets twice a day. We have not been fluid restricting her. She did receive DDAVP. She has also been started and states that she will be compliant with Remeron to help her with grief, depression and weight loss. We also started her on trazodone at night to help her sleep. While she has a history of COPD that remained stable while here. We treated her with as needed DuoNeb. Her last dose was November 10 at 5 PM. And she was maintained on Pulmicort. Her weight in July was 41 kg. In August she was 44.1 kg. With this admission she is gone back down to 41 kg. That is her discharge weight today. She has not had any melanotic stool. Hemoglobin at discharge from her GI bleed in July 2024 was 8.4. With admission here she is 14.4 and today at discharge she is 12.5. She will still need to see general surgery in follow-up for EGD and colonoscopy. And she needs to be seen by primary care provider and establish with one as well. Blood pressure is 133/61. Respirations 16. 94% saturated on room air. Temperature is 36.8. Pulse varies between 84-102. She is a tiny, frail appearing [place] female. Alert and oriented to person, place, time. Following commands. Sitting up at breakfast and feeding herself. Other than profound cachexia there is no other findings on exam. She has a regular rate and rhythm with a systolic ejection murmur. And abdomen that is nontender. Lungs are clear. Extremities without any focal deficits and no edema. Greater than 40 minutes was spent coordinating discharge This document was made in part using voice recognition software. While efforts are made to proofread this document, sound alike and grammatical errors may occur. ALLERGIES Allergies Allergy/AdvReac Type Severity Reaction Status Date / Time No Known Drug Allergies Allergy Verified 11/10/24 11:15 MEDICATIONS Ambulatory Orders Medication Instructions Recorded Confirmed acetaminophen 325 mg tablet 325 mg PO Q4H PRN fever or pain 11/14/24 #30 tabs albuterol sulfate 90 mcg/actuation 1 - 2 puff inhalation Q4HR PRN 11/14/24 aerosol inhaler (Ventolin HFA) Shortness Of Air/Wheezing #2 grams atorvastatin 10 mg tablet 10 mg PO DAILY #30 tabs 11/14/24 fluticasone 250 mcg-salmeterol 50 1 inh inhalation BID #1 ea 11/14/24 mcg/dose blistr powdr for inhalation (Aliciaxela Inhub) levocetirizine 5 mg tablet (24HR 5 mg PO QPM PRN allergy symptoms 11/14/24 11/10/24 Allergy Relief) #30 tabs lisinopril 20 mg tablet 20 mg PO DAILY hypertensi #30 tabs 11/14/24 metoprolol succinate 50 mg 50 mg PO DAILY #30 tabs 11/14/24 tablet,extended release 24 hr mirtazapine 15 mg tablet 15 mg PO QPM #30 tabs 11/14/24 [id number] 1 tab PO DAILYWM #30 tabs 11/14/24 fumarate 19 mg-folic acid 400 mcg tablet (Therapeutic-M) pantoprazole 40 mg tablet,delayed 40 mg PO BIDAC #60 tabs 11/14/24 release sodium chloride #60 ea 11/14/24 sucralfate 1 gram tablet (Carafate) 1 g PO QACHS #120 tabs 11/14/24 trazodone 50 mg tablet 50 mg PO QPM #30 tabs 11/14/24 LABS 11/14/24 04:23 11/14/24 11:45 Discharge Plan Discharge Patient Disposition: DC/Xfer Condition: Stable Medically Cleared Date:: 11/14/24 Prescriptions: New lisinopril 20 mg Tablet 20 mg PO DAILY Qty: 30 0RF mirtazapine 15 mg Tablet 15 mg PO QPM Qty: 30 0RF Therapeutic-M 19 mg iron- 400 mcg Tablet 1 tab PO DAILYWM Qty: 30 0RF trazodone 50 mg Tablet 50 mg PO QPM Qty: 30 0RF (DME) sodium chloride 1,000 mg tablet See Rx Instructions .Route .MEDSUPPLY Qty: 60 0RF Rx Instructions: As directed bid Continued fluticasone propion-salmeterol [Wixela Inhub] 250-50 mcg/dose blister with device 1 inh INHALATION BID Qty: 1 0RF acetaminophen 325 mg tablet 325 mg PO Q4H PRN (Reason: fever or pain) Qty: 30 0RF atorvastatin 10 mg tablet 10 mg PO DAILY Qty: 30 0RF metoprolol succinate 50 mg tablet extended release 24 hr 50 mg PO DAILY Qty: 30 0RF sucralfate [Carafate] 1 gram tablet 1 g PO QACHS Qty: 120 2RF pantoprazole 40 mg Tablet,Delayed Release (Dr/Ec) 40 mg PO BIDAC Qty: 60 0RF albuterol sulfate [Ventolin HFA] 200 PUFFS/18 GM HFA aerosol inhaler 1 - 2 puff inhalation Q4HR PRN (Reason: Shortness Of Air/Wheezing) Qty: 2 0RF levocetirizine [24HR Allergy Relief] 5 mg tablet 5 mg PO QPM PRN (Reason: allergy symptoms) Qty: 30 0RF Discontinued lisinopril-hydrochlorothiazide 10-12.5 mg tablet 1 tab PO DAILY Activity Restrictions: Activity as Tolerated Diet: Regular Health Concerns: You were admitted with weight loss, shortness of breath, and weakness with black tarry stools in July of last year. We found you to have a case of severe self-neglect. You have been failing ever since your last in July 2022. You had lost weight down to 84 pounds. But your sisters intervened and nagged you about eating and taking care of yourself and you were able to get yourself back up to 90 pounds. But you really were not doing well. We ended up transfusing you for the anemia. We think the black tarry stools were ulcer disease. We hydrated you aggressively with IV fluids and we started to feed you a balanced diet. I spoke to your daughter and your sisters. All of them are very worried about you and do not think you can take care of yourself anymore. Your sisters are overwhelmed. Your daughter really wants you to move in with her in [place]. But you are insistent about going back home and do not want to move. We instructed you on not ever taking anti-inflammatory medication again. That you needed to see a surgeon for an upper and lower endoscopy. And that you needed to take medicines to help heal your stomach. You have repeated your behavior and have continued to not take care of yourself. You not kept your doctors appointments. You have not taken the medicines that we gave you for probable ulcer disease. And you did not see the general surgeon in follow-up to do an upper and lower endoscopy. We are postulating that you may have ongoing and worsening memory loss. Your daughter has wanted to move you to [place] with her because your sisters cannot take care of you. The most they can do is drop in on you every few days and give you food. But they are not going to clean your house,or bathe you, or take you to your doctors appointments. They can buy you good and do drop off meals for you but you are not eating. Your daughter came to pick you up and take you to [place] but you refused to go with your daughter. You are keep on stating that your entire life has been the [facility]. You do have no desire to live in [place] even though you cannot get the care you need here. You came to the emergency room because of profound fatigue. It had been over a week with no appetite. Drinking 2, 20 ounce cups of water a day. But not eating much. No nausea or vomiting. No diarrhea. You have been trying to eat protein shakes at home. But for a week you were so weak you could not get out of bed. Your sisters called an ambulance, and in the emergency room, we found you to have an exceedingly dangerously low sodium of 107. Normal is 135. Sodium this low can cause severe brain damage and seizures. Your potassium was also low. We have slowly corrected your sodium with concentrated salt water being given to you in your veins. We had to do it very slowly because it is dangerous to do it too quickly. This morning your sodium is 127. You did not need any transfusion for anemia. You are alert and oriented to person, place, time and situation. You will now be transitioned to a [facility] facility for physical rehab. Your goal is to get stronger and to be independent again so that you go back to living at home alone again. I do not think you will be able to do so. I strongly urge you to hire caregivers if you are going to remain [place]. Or to move in with your daughter. You still need to have an upper and lower endoscopy. When you have gotten stronger, and can comply with the instructions, please see general surgery in follow-up. You will be continued on the antiulcer treatment of Protonix and Carafate. Print Language: Irish Patient Instructions: Peptic Ulcer, Alzheimer Disease Stand Alone Forms: SNF Discharge Follow-up Care: Minh Rock FNP [Primary Care Provider] -"
== END 2024-11-14 13:45 | DRG 641 ==
LOC: ED 11:02 → ICU 14:05
PROVIDERS: ADMIT Internal Medicine; ATTEND Internal Medicine
DX: I49.1 Atrial premature depolarization; R06.02 Shortness of breath; S00.83XA Contusion of other part of head, initial encounter; R63.0 Anorexia; J44.9 Chronic obstructive pulmonary disease, unspecified; R41.0 Disorientation, unspecified; E87.1 Hypo-osmolality and hyponatremia; R63.4 Abnormal weight loss; Z68.1 Body mass index [BMI] 19.9 or less, adult; R41.9 Unspecified symptoms and signs involving cognitive functions and awareness; W19.XXXA Unspecified fall, initial encounter; R05.9 Cough, unspecified; Z87.891 Personal history of nicotine dependence; Z63.4 Disappearance and death of family member; F43.21 Adjustment disorder with depressed mood; I10 Essential (primary) hypertension; Z79.899 Other long term (current) drug therapy; Z87.19 Personal history of other diseases of the digestive system; R53.1 Weakness; Z66 Do not resuscitate